=== PATIENT | male | born 1950 | race Caucasian/White ===

== ENCOUNTER 2019-02-14 21:00 | Inpatient (IN) | payer MEDICARE, OTHER ==
[2019-02-14 23:15] VITALS: BP 120/79
[2019-02-15] MEDS: Fish Oil 1,000 MG SGL PO SCH (08:32)
[2019-02-15] MEDS ORDERED: ICOSAPENT ETHYL 2 GM PO SCH (09:00)
[2019-02-15] MEDS: OLANZapine 5 mg Oral Disintegrating Tab PO SCH (09:51)
[2019-02-15] MEDS: Guaifenesin DM 10 ML UDC PO PRN ×2 (12:28→20:50)
--- NOTE | 2019-02-15 15:59 | Psychiatric Evaluation ---
DATE OF SERVICE: 02/14/2019 PSYCHIATRIC INITIAL EVALUATION AND MENTAL STATUS EXAMINATION AGE: 68. SEX: Male. PHYSICIAN: Dr. Cummings. CHIEF COMPLAINT: Irritability and aggressive behavior. HISTORY OF PRESENT ILLNESS: The patient is a 68-year-old male who was transferred from [facility] because the patient has been verbally aggressive and calling staff names and profanity and cursing at other patients. The patient also has been making racial comments to other patients. The patient also has been aggressive with other residents and also has been in angry mood. He also has been extremely agitated and it is also questionable if he is compliant with taking his medications and giving staff a difficult time to take his medications. PAST PSYCHIATRIC HISTORY: Multiple psychiatric hospitalizations for treatment of schizophrenia. Last hospitalization was in May of this year in the same place. PAST MEDICAL HISTORY: The patient has hypertension, gastroesophageal reflux disease, neuropathy, hyperlipidemia and also history of seizure disorder. The patient also has a history of cerebral infarct. SOCIAL HISTORY: The patient lives in [facility]. No known alcohol or drug use. ALLERGIES: No known allergies. MENTAL STATUS EXAMINATION: The patient appears slightly older than his stated age. Disheveled. Angry mood. Thought process is circumstantial, but no flight of ideas. The patient denies any auditory or visual hallucinations, but the patient seems to be paranoid and is actively responding. The patient denies any suicidal or homicidal ideations. The patient is alert and oriented to the situation, place and person. Intact immediate, recent and remote memories. Poor insight and poor judgment. ASSESSMENT: PRIMARY DIAGNOSIS: Chronic paranoid schizophrenia with acute exacerbation. MEDICAL DIAGNOSES: Hypertension. Seizure disorder. Gastroesophageal reflux disease. Cerebral infarct. Neuropathy. TREATMENT PLAN: We will monitor the patient's behavior and condition closely. We will increase Zyprexa to 5 mg in the morning and 15 mg at bedtime. Also, we will work on behavioral modification and his poor impulse control. ESTIMATED LENGTH OF STAY: 5-7 days. PATIENT'S STRENGTHS AND WEAKNESSES: The patient's strength is not clear at this time except he seems to be in relatively fair health. Weaknesses, his poor impulse control. AFTER DISCHARGE PLAN: Outpatient treatment and followup, will continue as an outpatient. CRITERIA FOR DISCHARGE: The patient will not be as agitated and will stabilize psychotropic medications and will establish outpatient treatment plans. JOB# [id number]
--- NOTE | 2019-02-15 19:55 | History & Physical ---
ADMIT DATE: 02/14/2019 HISTORY OF PRESENT ILLNESS: The patient is a 68-year-old male, long history of hypertension, seizure disorder, gastroesophageal reflux, psychosis admitted to Geropsych Department at [facility] under Dr. Cummings's service. The patient denies any chest pain, shortness of breath. He has some cough, congestion for a few days. PAST MEDICAL HISTORY: Significant for hypertension, seizure disorder, psychosis, gastroesophageal reflux, degenerative joint disease. PAST SURGICAL HISTORY: No recent surgery. ALLERGIES: He is allergic to ARIPIPRAZOLE, CHLORPROMAZINE, FLUPHENAZINE and HALOPERIDOL. SOCIAL HISTORY: Chronic smoker. No alcohol or drug. FAMILY HISTORY: Noncontributory. MEDICATIONS: Follow admission reconciliation. REVIEW OF SYSTEMS: RENAL SYSTEM: No history of chronic renal disorder. CARDIOVASCULAR SYSTEM: No coronary artery disease. ENDOCRINE SYSTEM: No diabetes or thyroid problem. GASTROINTESTINAL SYSTEM: No upper or lower GI bleeding. NEUROLOGICAL SYSTEM: He has history of seizure disorder. SKELETOMUSCULAR SYSTEM: He has degenerative joint disease. RESPIRATORY SYSTEM: No asthma. GENITOURINARY: No dysuria or hematuria. PHYSICAL EXAMINATION: GENERAL: He is awake, alert, oriented. VITAL SIGNS: Temperature 97.1, heart rate 102, blood pressure 125/92. HEENT: Normocephalic. Pupils reacting equal to light and accommodation. Sclerae clear. NECK: Supple. Negative for lymphadenopathy, JVD or bruit. CHEST: Air bilaterally normal. No rhonchi or wheezing. HEART: S1, S2 normal. No gallop rhythm. ABDOMEN: Soft, bowel sounds positive. EXTREMITIES: No edema. BACK: Vertebral. GENITALIA AND RECTAL: Done by primary physician. Genitalia, no complaint, done by primary physician. NEUROLOGIC: He is awake, alert, oriented. Cranial nerve 1: The patient is able to smell different odor. Cranial nerve 2: The patient is able to read printed page. Cranial nerve 3: The patient is able to move eyeball upward and outward. Cranial nerve 4: The patient is able to move eyeball inward and downward. Cranial nerve 5: The patient able to clench teeth, has normal sensation to forehead. Cranial nerve 6: The patient is able to move eyeball lateral on both sides. Cranial nerve 7: The patient is able to move eyebrow upwards on both sides. Cranial nerve 8: The patient able to hear finger rubs on both sides. Cranial nerve 9: The patient has a normal gag reflex. Cranial nerve 10: The patient able to move soft palate upward ____. Cranial nerve 11: The patient able to shrug shoulder on both sides. Cranial nerve 12: The patient able to stick tongue straight. Motor system examination within normal limits. Deep tendon reflexes within normal limits. Coordination of muscle within normal limits. Sensory system: The patient has a normal pain, touch, position of the upper extremities. Gait is stable. ASSESSMENT: 1. Hypertension. 2. Seizure disorder. 3. Degenerative joint disease. 4. Gastroesophageal reflux. 5. Chronic smoking. 6. Psychosis. PLAN: The patient admitted to the hospital under Dr. Cummings's service. Medical problems addressed during hospitalization is psychosis. Medical problems addressed at discharge are hypertension, seizure disorder, chronic back pain, degenerative joint disease, gastroesophageal reflux. The patient is medically stable for activity. Thank you Dr. Cummings for asking me to see your patient. The patient is cleared for activity. The patient is a full code. JOB# [id number]
--- NOTE | 2019-02-16 06:53 | Progress Notes ---
DATE: 02/16/2019 SUBJECTIVE: Chart was reviewed and the patient interviewed. Also discussed the patient's condition with the staff and reviewed records and labs. The patient continued to be severely irritable and easily agitated. The patient also is still preoccupied with his medication seeking and asking for more medications. The patient also did not sleep much last night. The patient is taking Zyprexa and it is not helping the patient with his sleep. Otherwise, the patient is compliant with taking Zyprexa that was increased yesterday to 5 mg in the morning and 50 mg at bedtime and the patient has no side effects of medications. ASSESSMENT: The patient is still agitated and irritable. TREATMENT PLAN: Continue to monitor his behavior and his condition. Also, we will add trazodone in a dose of 50 mg at bedtime. Also, continue to work on his poor impulse control and his agitation. JOB# [id number]
[2019-02-16] MEDS: Fish Oil 1,000 MG SGL PO SCH (08:13)
[2019-02-16] MEDS: OLANZapine 5 mg Oral Disintegrating Tab PO SCH (08:13)
[2019-02-16] MEDS: Guaifenesin DM 10 ML UDC PO PRN ×3 (08:46→21:38)
--- NOTE | 2019-02-16 15:14 | Psychiatric Evaluation ---
DATE OF SERVICE: 02/14/2019 PSYCHIATRIC INITIAL EVALUATION AND MENTAL STATUS EXAM DICTATION ENDS HERE JOB# [id number]
--- NOTE | 2019-02-16 21:32 | Internal Medicine Prog Note ---
Internal Medicine Subjective - Subjective Service Date: 02/16/19 Patient seen and examined:: without staff (HE FEELS WELL) Patient is:: awake, verbal, ambulating, talking Per staff patient has:: no adverse event Internal Medicine Objective - Physical Exam Vitals and I&O: Vital Signs Temp 97.5 F 02/16/19 14:00 Pulse 93 02/16/19 16:34 Resp 20 02/16/19 14:00 BP 130/93 02/16/19 16:34 Pulse Ox 95 02/16/19 14:00 Intake & Output 02/16/19 02/16/19 02/17/19 06:59 18:59 06:59 Intake Total 240 1200 Balance 240 1200 Intake: Oral 240 1200 Other: # Voids 3 # Bowel Movements 1 1 Stool Characteristics Soft Soft Formed Formed Active Medications: Current Medications Acetaminophen (Tylenol) 650 mg PO Q4HR PRN PRN Reason: Mild Pain 1-3 Stop: 04/16/19 00:24 Acetaminophen (Tylenol) 650 mg PO Q4H PRN PRN Reason: TEMP ABOVE 100 Stop: 04/16/19 10:08 Carvedilol (Coreg) 3.125 mg PO BID [facility] Stop: 04/16/19 08:59 Last Admin: 02/16/19 16:33 Dose: 3.125 mg Docusate Sodium (Colace) 250 mg PO BID [facility] Stop: 04/16/19 08:59 Last Admin: 02/16/19 16:34 Dose: 250 mg Famotidine (Pepcid) 20 mg PO DAILY [facility] Stop: 04/16/19 08:59 Last Admin: 02/16/19 08:14 Dose: 20 mg Fish Oil ([place] 3) 1,000 mg PO DAILY [facility] Stop: 04/16/19 08:59 Last Admin: 02/16/19 08:13 Dose: 1,000 mg Guaifenesin/Dextromethorphan (Robitussin Dm) 10 ml PO Q6HR PRN PRN Reason: Cough Stop: 04/16/19 10:58 Last Admin: 02/16/19 14:54 Dose: 10 ml Ibuprofen (Motrin) 400 mg PO Q8HR PRN PRN Reason: moderate pain (4-6) Stop: 04/16/19 00:24 Last Admin: 02/16/19 02:39 Dose: 400 mg Levetiracetam (Keppra) 500 mg PO BID [facility] Stop: 04/16/19 08:59 Last Admin: 02/16/19 16:34 Dose: 500 mg Lisinopril (Zestril) 20 mg PO BID [facility] Stop: 04/16/19 08:59 Last Admin: 02/16/19 16:34 Dose: 20 mg Lorazepam (Ativan) 0.5 mg PO Q4HR PRN; Protocol PRN Reason: Anxiety Stop: 04/16/19 00:24 Last Admin: 02/15/19 21:57 Dose: 0.5 mg Miscellaneous (Icosapent Ethyl [Vascepa]) 2 gm PO BID [facility] Stop: 04/16/19 08:59 Olanzapine (Zyprexa) 15 mg PO HS [facility]; Protocol Stop: 04/16/19 20:59 Last Admin: 02/15/19 20:32 Dose: 15 mg Olanzapine (Zyprexa Zydis) 5 mg PO DAILY [facility]; Protocol Stop: 04/16/19 08:59 Last Admin: 02/16/19 08:13 Dose: 5 mg Trazodone HCl (Desyrel) 50 mg PO HS [facility]; Protocol Stop: 04/17/19 20:59 Zolpidem Tartrate (Ambien) 5 mg PO HS PRN PRN Reason: Insomnia Stop: 04/16/19 00:24 Last Admin: 02/15/19 22:22 Dose: 5 mg General: alert HEENT: NC/AT, PERRLA, EOMI, anicteric sclerae, throat clear Neck: Supple, No JVD, No thyromegaly, +2 carotid pulse wo bruit, No LAD Cardiovascular: RRR, Normal S1, Normal S2, without murmur Abdomen: soft, non-tender, non-distended Extremities: clear Neurological: no change Internal Medicine Assmt/Plan - Assessment Assessment: 1.HTN. 2.SEIZURE DISORDER. 3.HYPERLIPIDEMIA. 4.PSYCHOSIS - Plan Plan: CONTINUE ON CURRENT MEDICATION AND DIET
[2019-02-17] MEDS: OLANZapine 5 mg Oral Disintegrating Tab PO SCH (09:03)
[2019-02-17] MEDS: Fish Oil 1,000 MG SGL PO SCH (09:03)
[2019-02-17] MEDS: Guaifenesin DM 10 ML UDC PO PRN ×2 (10:30→20:45)
--- NOTE | 2019-02-17 20:57 | Internal Medicine Prog Note ---
Internal Medicine Subjective - Subjective Service Date: 02/17/19 Patient seen and examined:: without staff (HE FEELS WELL) Patient is:: awake, verbal, ambulating, talking Per staff patient has:: no adverse event Internal Medicine Objective - Physical Exam Vitals and I&O: Vital Signs Temp 98 F 02/17/19 20:00 Pulse 92 02/17/19 20:00 Resp 20 02/17/19 20:00 BP 121/92 02/17/19 20:00 Pulse Ox 97 02/17/19 20:00 Intake & Output 02/17/19 02/17/19 02/18/19 06:59 18:59 06:59 Intake Total 240 240 Balance 240 240 Intake: Oral 240 240 Other: # Voids 2 1 # Bowel Movements 0 Stool Characteristics Soft Formed Active Medications: Current Medications Acetaminophen (Tylenol) 650 mg PO Q4HR PRN PRN Reason: Mild Pain 1-3 Stop: 04/16/19 00:24 Acetaminophen (Tylenol) 650 mg PO Q4H PRN PRN Reason: TEMP ABOVE 100 Stop: 04/16/19 10:08 Carvedilol (Coreg) 3.125 mg PO BID [facility] Stop: 04/16/19 08:59 Last Admin: 02/17/19 16:49 Dose: 3.125 mg Docusate Sodium (Colace) 250 mg PO BID [facility] Stop: 04/16/19 08:59 Last Admin: 02/17/19 16:48 Dose: 250 mg Famotidine (Pepcid) 20 mg PO DAILY [facility] Stop: 04/16/19 08:59 Last Admin: 02/17/19 09:03 Dose: 20 mg Fish Oil ([place] 3) 1,000 mg PO DAILY [facility] Stop: 04/16/19 08:59 Last Admin: 02/17/19 09:03 Dose: 1,000 mg Guaifenesin/Dextromethorphan (Robitussin Dm) 10 ml PO Q6HR PRN PRN Reason: Cough Stop: 04/16/19 10:58 Last Admin: 02/17/19 20:45 Dose: 10 ml Ibuprofen (Motrin) 400 mg PO Q8HR PRN PRN Reason: moderate pain (4-6) Stop: 04/16/19 00:24 Last Admin: 02/17/19 20:45 Dose: 400 mg Levetiracetam (Keppra) 500 mg PO BID [facility] Stop: 04/16/19 08:59 Last Admin: 02/17/19 16:48 Dose: 500 mg Lisinopril (Zestril) 20 mg PO BID [facility] Stop: 04/16/19 08:59 Last Admin: 02/17/19 16:49 Dose: 20 mg Lorazepam (Ativan) 0.5 mg PO Q4HR PRN; Protocol PRN Reason: Anxiety Stop: 04/16/19 00:24 Last Admin: 02/15/19 21:57 Dose: 0.5 mg Miscellaneous (Icosapent Ethyl [Vascepa]) 2 gm PO BID [facility] Stop: 04/16/19 08:59 Olanzapine (Zyprexa) 15 mg PO HS [facility]; Protocol Stop: 04/16/19 20:59 Last Admin: 02/17/19 20:31 Dose: 15 mg Olanzapine (Zyprexa Zydis) 5 mg PO DAILY [facility]; Protocol Stop: 04/16/19 08:59 Last Admin: 02/17/19 09:03 Dose: 5 mg Trazodone HCl (Desyrel) 50 mg PO HS [facility]; Protocol Stop: 04/17/19 20:59 Last Admin: 02/17/19 20:30 Dose: 50 mg Zolpidem Tartrate (Ambien) 5 mg PO HS PRN PRN Reason: Insomnia Stop: 04/16/19 00:24 Last Admin: 02/16/19 21:38 Dose: 5 mg General: alert HEENT: NC/AT, PERRLA, EOMI, anicteric sclerae, throat clear Neck: Supple, No JVD, No thyromegaly, +2 carotid pulse wo bruit, No LAD Cardiovascular: RRR, Normal S1, Normal S2, without murmur Abdomen: soft, non-tender, non-distended Extremities: clear Neurological: no change Internal Medicine Assmt/Plan - Assessment Assessment: 1.HTN. 2.SEIZURE DISORDER. 3.HYPERLIPIDEMIA. 4.PSYCHOSIS - Plan Plan: CONTINUE ON CURRENT MEDICATION AND DIET
--- NOTE | 2019-02-18 01:58 | Progress Notes ---
DATE: 02/17/[address] Cummings. Case was discussed with staff of the patient, reviewed records and labs and medication. The patient is a 68-year-old male who was admitted on 02/14/2019 because of aggressive behavior, irritability. The patient came from [facility] because he has been verbally aggressive and calling staff names and profanity and cursing at other patient, has been making racial comments to other patients. The patient also has been aggressive with other residents and has been in angry mood, also being extremely agitated and also questionable if he is compliant with taking his medication and giving staff difficult time to take his medication. He is with multiple prior psychiatric hospitalizations. The patient continues to be easily agitated, continues to be internally preoccupied. Continues to have difficulty with sleep. He is compliant with the medication with no side effects, no sedation, no nausea, no extrapyramidal symptoms. He is on Zyprexa that was increased to 5 mg daily and 15 mg at bedtime with no side effects, no sedation, no nausea and no extrapyramidal symptoms. We will continue to work with the patient in group therapy, milieu therapy and adjust the medication as needed. JOB# [id number]
[2019-02-18] MEDS: Guaifenesin DM 10 ML UDC PO PRN ×3 (08:34→16:09)
[2019-02-18] MEDS: Fish Oil 1,000 MG SGL PO SCH (08:36)
[2019-02-18] MEDS: OLANZapine 5 mg Oral Disintegrating Tab PO SCH (08:37)
--- NOTE | 2019-02-18 20:52 | General Progress Note ---
Subjective - Review of Systems Service Date: 02/18/19 Subjective: resting comfortably no distress Objective - Physical Exam Vitals and I&O: Vital Signs Temp 98.1 F 02/18/19 20:19 Pulse 85 02/18/19 20:19 Resp 20 02/18/19 20:19 BP 128/92 02/18/19 20:19 Pulse Ox 93 02/18/19 20:19 Intake & Output 02/18/19 02/18/19 02/19/19 06:59 18:59 06:59 Intake Total 420 240 Balance 420 240 Intake: Oral 420 240 Other: # Voids 1 2 # Bowel Movements 0 Stool Characteristics Formed Active Medications: Current Medications Acetaminophen (Tylenol) 650 mg PO Q4HR PRN PRN Reason: Mild Pain 1-3 Stop: 04/16/19 00:24 Acetaminophen (Tylenol) 650 mg PO Q4H PRN PRN Reason: TEMP ABOVE 100 Stop: 04/16/19 10:08 Carvedilol (Coreg) 3.125 mg PO BID [facility] Stop: 04/16/19 08:59 Last Admin: 02/18/19 16:03 Dose: 3.125 mg Docusate Sodium (Colace) 250 mg PO BID [facility] Stop: 04/16/19 08:59 Last Admin: 02/18/19 16:02 Dose: 250 mg Famotidine (Pepcid) 20 mg PO DAILY [facility] Stop: 04/16/19 08:59 Last Admin: 02/18/19 08:36 Dose: 20 mg Fish Oil ([place] 3) 1,000 mg PO DAILY [facility] Stop: 04/16/19 08:59 Last Admin: 02/18/19 08:36 Dose: 1,000 mg Guaifenesin/Dextromethorphan (Robitussin Dm) 10 ml PO Q6HR PRN PRN Reason: Cough Stop: 04/16/19 10:58 Last Admin: 02/18/19 16:09 Dose: 10 ml Ibuprofen (Motrin) 400 mg PO Q8HR PRN PRN Reason: moderate pain (4-6) Stop: 04/16/19 00:24 Last Admin: 02/18/19 20:35 Dose: 400 mg Levetiracetam (Keppra) 500 mg PO BID [facility] Stop: 04/16/19 08:59 Last Admin: 02/18/19 16:02 Dose: 500 mg Lisinopril (Zestril) 20 mg PO BID [facility] Stop: 04/16/19 08:59 Last Admin: 02/18/19 16:02 Dose: 20 mg Lorazepam (Ativan) 0.5 mg PO Q4HR PRN; Protocol PRN Reason: Anxiety Stop: 04/16/19 00:24 Last Admin: 02/18/19 04:04 Dose: 0.5 mg Miscellaneous (Icosapent Ethyl [Vascepa]) 2 gm PO BID [facility] Stop: 04/16/19 08:59 Olanzapine (Zyprexa) 15 mg PO HS [facility]; Protocol Stop: 04/16/19 20:59 Last Admin: 02/17/19 20:31 Dose: 15 mg Olanzapine (Zyprexa Zydis) 5 mg PO DAILY [facility]; Protocol Stop: 04/16/19 08:59 Last Admin: 02/18/19 08:37 Dose: 5 mg Trazodone HCl (Desyrel) 50 mg PO HS [facility]; Protocol Stop: 04/17/19 20:59 Last Admin: 02/18/19 20:35 Dose: 50 mg Zolpidem Tartrate (Ambien) 5 mg PO HS PRN PRN Reason: Insomnia Stop: 04/16/19 00:24 Last Admin: 02/16/19 21:38 Dose: 5 mg General: No acute distress HEENT: PERRLA, EOMI Neck: Supple, JVD, Thyromegaly Cardiovascular: Regular rate, Normal S1, Normal S2 Lungs: Clear to auscultation Abdomen: Bowel sounds, Soft Assessment/Plan - Assessment Assessment: 1.HTN. 2.SEIZURE DISORDER. 3.HYPERLIPIDEMIA. 4.PSYCHOSIS - Plan Plan: continue current treatment
--- NOTE | 2019-02-18 23:13 | Progress Notes ---
DATE: 02/18/[address] Cummings. The patient was seen and evaluated. The patient's chart reviewed. IDENTIFYING DATA: This is a 68-year-old male with history of schizophrenia, brought in here for aggressive behavior towards staff from his assisted. Today on [id number] evaluation, the patient admits to schizophrenia and hearing voices and paranoid. MENTAL STATUS EXAMINATION: Paranoid, auditory hallucinations, aggressive behavior. ASSESSMENT AND PLAN: Schizophrenia, his Zyprexa was recently increased. Reconciliation reviewed, includes Coreg, Col[facility], Pepcid, omega, Motrin, Keppra, Zestril, Ativan, Zydis 5 in the morning, 15 at nighttime with trazodone as needed. JOB# [id number]
[2019-02-19] MEDS: Fish Oil 1,000 MG SGL PO SCH (08:19)
[2019-02-19] MEDS: OLANZapine 5 mg Oral Disintegrating Tab PO SCH (08:20)
[2019-02-19] MEDS: Guaifenesin DM 10 ML UDC PO PRN ×2 (09:56→17:15)
--- NOTE | 2019-02-19 13:59 | General Progress Note ---
Subjective - Review of Systems Service Date: 02/19/19 Subjective: resting comfortably no distress Objective - Physical Exam Vitals and I&O: Vital Signs Temp 97.6 F 02/19/19 05:58 Pulse 97 02/19/19 08:20 Resp 20 02/19/19 05:58 BP 125/87 02/19/19 08:20 Pulse Ox 94 02/19/19 05:58 Intake & Output 02/18/19 02/19/19 02/19/19 18:59 06:59 18:59 Intake Total 240 Balance 240 Intake: Oral 240 Other: # Voids 2 Stool Characteristics Formed Active Medications: Current Medications Acetaminophen (Tylenol) 650 mg PO Q4HR PRN PRN Reason: Mild Pain 1-3 Stop: 04/16/19 00:24 Acetaminophen (Tylenol) 650 mg PO Q4H PRN PRN Reason: TEMP ABOVE 100 Stop: 04/16/19 10:08 Carvedilol (Coreg) 3.125 mg PO BID [facility] Stop: 04/16/19 08:59 Last Admin: 02/19/19 08:18 Dose: 3.125 mg Docusate Sodium (Colace) 250 mg PO BID [facility] Stop: 04/16/19 08:59 Last Admin: 02/19/19 08:19 Dose: 250 mg Famotidine (Pepcid) 20 mg PO DAILY [facility] Stop: 04/16/19 08:59 Last Admin: 02/19/19 08:19 Dose: 20 mg Fish Oil ([place] 3) 1,000 mg PO DAILY [facility] Stop: 04/16/19 08:59 Last Admin: 02/19/19 08:19 Dose: 1,000 mg Guaifenesin/Dextromethorphan (Robitussin Dm) 10 ml PO Q6HR PRN PRN Reason: Cough Stop: 04/16/19 10:58 Last Admin: 02/19/19 09:56 Dose: 10 ml Ibuprofen (Motrin) 400 mg PO Q8HR PRN PRN Reason: moderate pain (4-6) Stop: 04/16/19 00:24 Last Admin: 02/19/19 08:31 Dose: 400 mg Levetiracetam (Keppra) 500 mg PO BID [facility] Stop: 04/16/19 08:59 Last Admin: 02/19/19 08:24 Dose: 500 mg Lisinopril (Zestril) 20 mg PO BID [facility] Stop: 04/16/19 08:59 Last Admin: 02/19/19 08:20 Dose: 20 mg Lorazepam (Ativan) 0.5 mg PO Q4HR PRN; Protocol PRN Reason: Anxiety Stop: 04/16/19 00:24 Last Admin: 02/19/19 01:25 Dose: 0.5 mg Miscellaneous (Icosapent Ethyl [Vascepa]) 2 gm PO BID [facility] Stop: 04/16/19 08:59 Olanzapine (Zyprexa) 15 mg PO HS [facility]; Protocol Stop: 04/16/19 20:59 Last Admin: 02/18/19 20:00 Dose: 15 mg Olanzapine (Zyprexa Zydis) 5 mg PO DAILY [facility]; Protocol Stop: 04/16/19 08:59 Last Admin: 02/19/19 08:20 Dose: 5 mg Trazodone HCl (Desyrel) 50 mg PO HS [facility]; Protocol Stop: 04/17/19 20:59 Last Admin: 02/18/19 20:35 Dose: 50 mg Zolpidem Tartrate (Ambien) 5 mg PO HS PRN PRN Reason: Insomnia Stop: 04/16/19 00:24 Last Admin: 02/16/19 21:38 Dose: 5 mg General: No acute distress HEENT: PERRLA, EOMI Neck: Supple, JVD, Thyromegaly Cardiovascular: Regular rate, Normal S1, Normal S2 Lungs: Clear to auscultation Abdomen: Bowel sounds, Soft Assessment/Plan - Assessment Assessment: 1.HTN. 2.SEIZURE DISORDER. 3.HYPERLIPIDEMIA. 4.PSYCHOSIS - Plan Plan: continue current treatment
--- NOTE | 2019-02-19 20:21 | Progress Notes ---
DATE: 02/19/2019 Today on [id number] evaluation, the patient reports voices are getting better. MENTAL STATUS EXAMINATION: Paranoid voices. ASSESSMENT AND PLAN: Schizophrenia with recent addition of Zyprexa, has been tolerated, to continue targeting the patient's residual psychotic state. JOB# [id number]
[2019-02-20] MEDS: OLANZapine 5 mg Oral Disintegrating Tab PO SCH (08:21)
[2019-02-20] MEDS: Fish Oil 1,000 MG SGL PO SCH (08:21)
[2019-02-20] MEDS: Guaifenesin DM 10 ML UDC PO PRN ×2 (09:39→19:44)
--- NOTE | 2019-02-20 18:10 | Internal Medicine Prog Note ---
Internal Medicine Subjective - Subjective Service Date: 02/20/19 Patient seen and examined:: without staff (HE HAS COUGH AND BACK PAIN) Patient is:: awake, verbal, ambulating, talking Per staff patient has:: no adverse event Internal Medicine Objective - Physical Exam Vitals and I&O: Vital Signs Temp 98.2 F 02/20/19 14:40 Pulse 85 02/20/19 16:53 Resp 20 02/20/19 14:40 BP 128/92 02/20/19 16:53 Pulse Ox 99 02/20/19 14:40 Intake & Output 02/19/19 02/20/19 02/20/19 18:59 06:59 18:59 Intake Total 1320 420 Balance 1320 420 Intake: Oral 1080 420 Other 240 Other: # Voids 3 2 # Bowel Movements 1 0 Active Medications: Current Medications Acetaminophen (Tylenol) 650 mg PO Q4HR PRN PRN Reason: Mild Pain 1-3 Stop: 04/16/19 00:24 Acetaminophen (Tylenol) 650 mg PO Q4H PRN PRN Reason: TEMP ABOVE 100 Stop: 04/16/19 10:08 Carvedilol (Coreg) 3.125 mg PO BID [facility] Stop: 04/16/19 08:59 Last Admin: 02/20/19 16:53 Dose: 3.125 mg Docusate Sodium (Colace) 250 mg PO BID [facility] Stop: 04/16/19 08:59 Last Admin: 02/20/19 16:52 Dose: Not Given Famotidine (Pepcid) 20 mg PO DAILY [facility] Stop: 04/16/19 08:59 Last Admin: 02/20/19 08:21 Dose: 20 mg Fish Oil ([place] 3) 1,000 mg PO DAILY [facility] Stop: 04/16/19 08:59 Last Admin: 02/20/19 08:21 Dose: 1,000 mg Guaifenesin/Dextromethorphan (Robitussin Dm) 10 ml PO Q6HR PRN PRN Reason: Cough Stop: 04/16/19 10:58 Last Admin: 02/20/19 09:39 Dose: 10 ml Ibuprofen (Motrin) 400 mg PO Q8HR PRN PRN Reason: moderate pain (4-6) Stop: 04/16/19 00:24 Last Admin: 02/20/19 08:21 Dose: 400 mg Levetiracetam (Keppra) 500 mg PO BID [facility] Stop: 04/16/19 08:59 Last Admin: 02/20/19 16:52 Dose: 500 mg Lisinopril (Zestril) 20 mg PO BID [facility] Stop: 04/16/19 08:59 Last Admin: 02/20/19 16:52 Dose: 20 mg Lorazepam (Ativan) 0.5 mg PO Q4HR PRN; Protocol PRN Reason: Anxiety Stop: 04/16/19 00:24 Last Admin: 02/19/19 01:25 Dose: 0.5 mg Miscellaneous (Icosapent Ethyl [Vascepa]) 2 gm PO BID [facility] Stop: 04/16/19 08:59 Olanzapine (Zyprexa) 15 mg PO HS [facility]; Protocol Stop: 04/16/19 20:59 Last Admin: 02/19/19 20:59 Dose: 15 mg Olanzapine (Zyprexa Zydis) 5 mg PO DAILY [facility]; Protocol Stop: 04/16/19 08:59 Last Admin: 02/20/19 08:21 Dose: 5 mg Trazodone HCl (Desyrel) 50 mg PO HS [facility]; Protocol Stop: 04/17/19 20:59 Last Admin: 02/19/19 20:59 Dose: 50 mg Zolpidem Tartrate (Ambien) 5 mg PO HS PRN PRN Reason: Insomnia Stop: 04/16/19 00:24 Last Admin: 02/16/19 21:38 Dose: 5 mg General: alert HEENT: NC/AT, PERRLA, EOMI, anicteric sclerae, throat clear Neck: Supple, No JVD, No thyromegaly, +2 carotid pulse wo bruit, No LAD Cardiovascular: RRR, Normal S1, Normal S2, without murmur Abdomen: soft, non-tender, non-distended Extremities: clear Neurological: no change Internal Medicine Assmt/Plan - Assessment Assessment: 1.HTN. 2.SEIZURE DISORDER. 3.HYPERLIPIDEMIA. 4.PSYCHOSIS 5.BACK PAIN 6.CHRONIC SMOKING - Plan Plan: CONTINUE ON CURRENT MEDICATION AND DIET.ROBITUSSIN 10 CC PO TID Nutritional Asmnt/Malnutr-PDOC - Dietary Evaluation Malnutrition Findings (Please click <Entered> for more info): Nutritional Asmnt/Malnutrition Start: 02/20/19 14: 34 Text: Status: Complete Freq: Protocol: Document 02/20/19 14:34 AB (Rec: 02/20/19 14:37 AB [email or web address]) Nutritional Asmnt/Malnutrition Patient General Information Nutritional Screening Low Risk Diagnosis Psychosis Pertinent Medical Hx/Surgical Hx HTN, Seizure Disorder, GERD, Psychosis, DJD, Chronic smoker Subjective Information Pt is a 68-year-old male admitted on 02/14 d/t psychosis . Pt is eating an estimated 100% of meals since admit date Per Meal/Nutrition Activity Record. Dietary is currently providing an estimated 2300 kcals and 115 gm Pro to meet 100+% kcal and 100+% Pro needs . Anthropometrics HT: 57 WT: 180 LB (81.82 kg) ABW: 156 LB (70.91 kg) BMI: 28.19 (Overweight) GI/ Skin Integrity GI: WNL, Soft, Flat, Non- tender BM: 02/16 x1 I/O: 1740/ not noted Skin: WNL, Intact Nino: 22 Diet Order: Cardiac, chopped, TOAN Estimated Energy Needs: ( Geriatric, ABW) 8011-2841 kcals (25-30 kcals/ kg) 70-85g Pro (1.0-1.2 g/kg) 0051-3685 ml (25-30 ml/kg) Current Diet Order/ Nutrition Support Cardiac, chopped, TOAN Pertinent Medications Coreg, Colace, Pepcid, [place] 3 Pertinent Labs 02/14: Glucose 154, GFR 82, HDL 39 Nutritional Hx/Data Height 1.7 m Height (Calculated Centimeters) 170.2 Current Weight (lbs) 81.647 kg Weight (Calculated Kilograms) 81.6 Weight (Calculated Grams) 17892.6 [place] Body Weight 148 LB (67.27 kg) % [place] Body Weight 122 Body Mass Index (BMI) 28.1 Weight Status Overweight GI Symptoms GI Symptoms None Last BM 02/16 x1 Skin Integrity/Comment: Skin: WNL, Intact Nino: 22 Current %PO Good (75-100%) Estimated Nutritional Goals BEE in Kcals: Adj wt of IBW Calories/Kcals/Kg 25-30 Kcals Calculated 2579-8696 Protein: Adj wt of IBW Protein g/k.0-1.2 Protein Calculated 70-85 Fluid: ml 5430-8383 ml (25-30 ml/kg) Nutritional Problem No current Nutrition Prob Problem No nutrition diagnosis at this time. Etiology N/A Signs/Symptoms: N/A Malnutrition Related to Morbid Obesity Malnutrition related to morbid obesity No Intervention/Recommendation Comments Continue Cardiac, chopped, TOAN diet as tolerated. Expected Outcomes/Goals Expected Outcomes/Goals 1. PO intake to continue to meet> 75% of estimated nutritional needs. 2. Monitor PO intake, wt, nutrition related labs, and skin integrity. 3. F/U as low risk in 7-10 days, 02/27-03/02
--- NOTE | 2019-02-21 00:04 | Progress Notes ---
DATE: 02/20/2019 SUBJECTIVE: Case was discussed with staff of the patient, reviewed records. The patient continues to have poor insight, unpredictable, impulsive, needing redirection. Continues to be paranoid, continues to report the voices are getting better. He is sleeping better, eating better, isolating himself. No side effects with the medication, no sedation, no nausea, no extrapyramidal symptoms. We will continue outpatient group therapy, milieu therapy, and adjust medications as needed. JOB# [id number]
[2019-02-21] MEDS: OLANZapine 5 mg Oral Disintegrating Tab PO SCH (08:30)
[2019-02-21] MEDS: Fish Oil 1,000 MG SGL PO SCH (08:30)
--- NOTE | 2019-02-21 21:11 | Internal Medicine Prog Note ---
Internal Medicine Subjective - Subjective Service Date: 02/21/19 Patient seen and examined:: without staff (HE STILL HAS BACK PAIN) Patient is:: awake, verbal, ambulating, talking Per staff patient has:: no adverse event Internal Medicine Objective - Physical Exam Vitals and I&O: Vital Signs Temp 98.4 F 02/21/19 20:38 Pulse 96 02/21/19 20:38 Resp 20 02/21/19 20:38 BP 133/100 02/21/19 20:38 Pulse Ox 93 02/21/19 20:38 Intake & Output 02/21/19 02/21/19 02/22/19 06:59 18:59 06:59 Intake Total 240 120 Balance 240 120 Intake: Oral 240 120 Other: # Voids 2 3 2 # Bowel Movements 1 0 Active Medications: Current Medications Acetaminophen (Tylenol) 650 mg PO Q4HR PRN PRN Reason: Mild Pain 1-3 Stop: 04/16/19 00:24 Acetaminophen (Tylenol) 650 mg PO Q4H PRN PRN Reason: TEMP ABOVE 100 Stop: 04/16/19 10:08 Carvedilol (Coreg) 3.125 mg PO BID [facility] Stop: 04/16/19 08:59 Last Admin: 02/21/19 16:22 Dose: 3.125 mg Docusate Sodium (Colace) 250 mg PO BID [facility] Stop: 04/16/19 08:59 Last Admin: 02/21/19 16:22 Dose: Not Given Famotidine (Pepcid) 20 mg PO DAILY [facility] Stop: 04/16/19 08:59 Last Admin: 02/21/19 08:30 Dose: 20 mg Fish Oil ([place] 3) 1,000 mg PO DAILY [facility] Stop: 04/16/19 08:59 Last Admin: 02/21/19 08:30 Dose: 1,000 mg Guaifenesin (Robitussin) 200 mg PO Q4HR PRN PRN Reason: Cough or Congestion Stop: 04/21/19 18:09 Guaifenesin/Dextromethorphan (Robitussin Dm) 10 ml PO Q6HR PRN PRN Reason: Cough Stop: 04/16/19 10:58 Last Admin: 02/20/19 19:44 Dose: 10 ml Ibuprofen (Motrin) 400 mg PO Q8HR PRN PRN Reason: moderate pain (4-6) Stop: 04/16/19 00:24 Last Admin: 02/20/19 08:21 Dose: 400 mg Levetiracetam (Keppra) 500 mg PO BID [facility] Stop: 04/16/19 08:59 Last Admin: 02/21/19 16:23 Dose: 500 mg Lisinopril (Zestril) 20 mg PO BID [facility] Stop: 04/16/19 08:59 Last Admin: 02/21/19 16:23 Dose: 20 mg Lorazepam (Ativan) 0.5 mg PO Q4HR PRN; Protocol PRN Reason: Anxiety Stop: 04/16/19 00:24 Last Admin: 02/20/19 19:44 Dose: 0.5 mg Miscellaneous (Icosapent Ethyl [Vascepa]) 2 gm PO BID [facility] Stop: 04/16/19 08:59 Olanzapine (Zyprexa) 15 mg PO HS [facility]; Protocol Stop: 04/16/19 20:59 Last Admin: 02/20/19 20:20 Dose: 15 mg Olanzapine (Zyprexa Zydis) 5 mg PO DAILY [facility]; Protocol Stop: 04/16/19 08:59 Last Admin: 02/21/19 08:30 Dose: 5 mg Trazodone HCl (Desyrel) 50 mg PO HS [facility]; Protocol Stop: 04/17/19 20:59 Last Admin: 02/20/19 20:20 Dose: 50 mg Zolpidem Tartrate (Ambien) 5 mg PO HS PRN PRN Reason: Insomnia Stop: 04/16/19 00:24 Last Admin: 02/16/19 21:38 Dose: 5 mg General: alert HEENT: NC/AT, PERRLA, EOMI, anicteric sclerae, throat clear Neck: Supple, No JVD, No thyromegaly, +2 carotid pulse wo bruit, No LAD Cardiovascular: RRR, Normal S1, Normal S2, without murmur Abdomen: soft, non-tender, non-distended Extremities: clear Neurological: no change Internal Medicine Assmt/Plan - Assessment Assessment: 1.HTN. 2.SEIZURE DISORDER. 3.HYPERLIPIDEMIA. 4.PSYCHOSIS 5.BACK PAIN 6.CHRONIC SMOKING - Plan Plan: CONTINUE ON CURRENT MEDICATION AND DIET. Nutritional Asmnt/Malnutr-PDOC - Dietary Evaluation Malnutrition Findings (Please click <Entered> for more info): Nutritional Asmnt/Malnutrition Start: 02/20/19 14: 34 Text: Status: Complete Freq: Protocol: Document 02/20/19 14:34 AB (Rec: 02/20/19 14:37 AB [email or web address]) Nutritional Asmnt/Malnutrition Patient General Information Nutritional Screening Low Risk Diagnosis Psychosis Pertinent Medical Hx/Surgical Hx HTN, Seizure Disorder, GERD, Psychosis, DJD, Chronic smoker Subjective Information Pt is a 68-year-old male admitted on 02/14 d/t psychosis . Pt is eating an estimated 100% of meals since admit date Per Meal/Nutrition Activity Record. Dietary is currently providing an estimated 2300 kcals and 115 gm Pro to meet 100+% kcal and 100+% Pro needs . Anthropometrics HT: 57 WT: 180 LB (81.82 kg) ABW: 156 LB (70.91 kg) BMI: 28.19 (Overweight) GI/ Skin Integrity GI: WNL, Soft, Flat, Non- tender BM: 02/16 x1 I/O: 1740/ not noted Skin: WNL, Intact Nino: 22 Diet Order: Cardiac, chopped, TOAN Estimated Energy Needs: ( Geriatric, ABW) 3290-4526 kcals (25-30 kcals/ kg) 70-85g Pro (1.0-1.2 g/kg) 9856-5242 ml (25-30 ml/kg) Current Diet Order/ Nutrition Support Cardiac, chopped, TOAN Pertinent Medications Coreg, Colace, Pepcid, [place] 3 Pertinent Labs 02/14: Glucose 154, GFR 82, HDL 39 Nutritional Hx/Data Height 1.7 m Height (Calculated Centimeters) 170.2 Current Weight (lbs) 81.647 kg Weight (Calculated Kilograms) 81.6 Weight (Calculated Grams) 67053.6 [place] Body Weight 148 LB (67.27 kg) % [place] Body Weight 122 Body Mass Index (BMI) 28.1 Weight Status Overweight GI Symptoms GI Symptoms None Last BM 02/16 x1 Skin Integrity/Comment: Skin: WNL, Intact Nino: 22 Current %PO Good (75-100%) Estimated Nutritional Goals BEE in Kcals: Adj wt of IBW Calories/Kcals/Kg 25-30 Kcals Calculated 9591-3866 Protein: Adj wt of IBW Protein g/k.0-1.2 Protein Calculated 70-85 Fluid: ml 9602-3481 ml (25-30 ml/kg) Nutritional Problem No current Nutrition Prob Problem No nutrition diagnosis at this time. Etiology N/A Signs/Symptoms: N/A Malnutrition Related to Morbid Obesity Malnutrition related to morbid obesity No Intervention/Recommendation Comments Continue Cardiac, chopped, TOAN diet as tolerated. Expected Outcomes/Goals Expected Outcomes/Goals 1. PO intake to continue to meet> 75% of estimated nutritional needs. 2. Monitor PO intake, wt, nutrition related labs, and skin integrity. 3. F/U as low risk in 7-10 days, 02/27-03/02
[2019-02-21] MEDS: Guaifenesin DM 10 ML UDC PO PRN (21:13)
--- NOTE | 2019-02-21 21:34 | Progress Notes ---
DATE: Case was discussed with staff of the patient, reviewed records. The patient complained of multiple somatic complaints. I asked the staff to tell the medical doctor to evaluate him. The patient continues to be paranoid, continues to report hearing voices, voice getting better, sleeping better, eating better. He is isolating himself, less more sociable. No side effects with the medication, no sedation, no nausea, no extrapyramidal symptoms. We will continue to work with the patient in group therapy, milieu therapy, adjust medication as needed. JOB# [id number]
--- NOTE | 2019-02-22 06:48 | Progress Notes ---
DATE: 02/22/2019 SUBJECTIVE: Chart was reviewed and the patient interviewed. Also discussed the patient's condition with the staff and reviewed records and labs. The patient is still easily agitated and is still guarded and withdrawn. The patient also continued repeatedly asking for hepatitis C shot. The patient also has difficulty sleeping at night and it seems that last night he hardly slept. The patient also said that he is homeless and has no place to live. Also, the patient noted by staff to be screaming in his room by himself and for no apparent reason. ASSESSMENT: The patient is still psychotic and agitated. TREATMENT PLAN: Continue to monitor behavior and condition closely. Also continue Zyprexa 5 mg in the morning and 50 mg at bedtime. We will increase trazodone to 100 mg at bedtime. Also, we will work on placement issue. JOB# [id number]
[2019-02-22] MEDS: OLANZapine 5 mg Oral Disintegrating Tab PO SCH (09:10)
[2019-02-22] MEDS: Fish Oil 1,000 MG SGL PO SCH (09:12)
[2019-02-22] MEDS: guaiFENesin 200 MG/10 ML UDC PO PRN ×2 (16:48→20:58)
--- NOTE | 2019-02-22 23:14 | Internal Medicine Prog Note ---
Internal Medicine Subjective - Subjective Service Date: 02/22/19 Patient seen and examined:: without staff (HE STILL HAS PAIN) Patient is:: awake, verbal, ambulating, talking Per staff patient has:: no adverse event Internal Medicine Objective - Physical Exam Vitals and I&O: Vital Signs Temp 97.9 F 02/22/19 20:59 Pulse 88 02/22/19 20:59 Resp 20 02/22/19 20:59 BP 99/66 02/22/19 20:59 Pulse Ox 95 02/22/19 20:59 Intake & Output 02/22/19 02/22/19 02/23/19 06:59 18:59 06:59 Intake Total 240 1150 120 Balance 240 1150 120 Intake: Oral 240 1150 120 Other: # Voids 2 2 # Bowel Movements 0 0 Active Medications: Current Medications Acetaminophen (Tylenol) 650 mg PO Q4HR PRN PRN Reason: Mild Pain 1-3 Stop: 04/16/19 00:24 Acetaminophen (Tylenol) 650 mg PO Q4H PRN PRN Reason: TEMP ABOVE 100 Stop: 04/16/19 10:08 Carvedilol (Coreg) 3.125 mg PO BID [facility] Stop: 04/16/19 08:59 Last Admin: 02/22/19 16:47 Dose: 3.125 mg Docusate Sodium (Colace) 250 mg PO BID [facility] Stop: 04/16/19 08:59 Last Admin: 02/22/19 16:50 Dose: 250 mg Famotidine (Pepcid) 20 mg PO DAILY [facility] Stop: 04/16/19 08:59 Last Admin: 02/22/19 09:11 Dose: 20 mg Fish Oil ([place] 3) 1,000 mg PO DAILY [facility] Stop: 04/16/19 08:59 Last Admin: 02/22/19 09:12 Dose: 1,000 mg Guaifenesin (Robitussin) 200 mg PO Q4HR PRN PRN Reason: Cough or Congestion Stop: 04/21/19 18:09 Last Admin: 02/22/19 20:58 Dose: 200 mg Ibuprofen (Motrin) 400 mg PO Q8HR PRN PRN Reason: moderate pain (4-6) Stop: 04/16/19 00:24 Last Admin: 02/20/19 08:21 Dose: 400 mg Levetiracetam (Keppra) 500 mg PO BID [facility] Stop: 04/16/19 08:59 Last Admin: 02/22/19 16:51 Dose: 500 mg Lisinopril (Zestril) 20 mg PO BID [facility] Stop: 04/16/19 08:59 Last Admin: 02/22/19 16:51 Dose: 20 mg Lorazepam (Ativan) 0.5 mg PO Q4HR PRN; Protocol PRN Reason: Anxiety Stop: 04/23/19 14:58 Miscellaneous (Icosapent Ethyl [Vascepa]) 2 gm PO BID [facility] Stop: 04/16/19 08:59 Olanzapine (Zyprexa) 15 mg PO HS [facility]; Protocol Stop: 04/16/19 20:59 Last Admin: 02/22/19 20:36 Dose: 15 mg Olanzapine (Zyprexa Zydis) 5 mg PO DAILY [facility]; Protocol Stop: 04/16/19 08:59 Last Admin: 02/22/19 09:10 Dose: 5 mg Trazodone HCl (Desyrel) 100 mg PO HS [facility]; Protocol Stop: 04/23/19 20:59 Last Admin: 02/22/19 20:36 Dose: 100 mg General: alert HEENT: NC/AT, PERRLA, EOMI, anicteric sclerae, throat clear Neck: Supple, No JVD, No thyromegaly, +2 carotid pulse wo bruit, No LAD Cardiovascular: RRR, Normal S1, Normal S2, without murmur Abdomen: soft, non-tender, non-distended Extremities: clear Neurological: no change Internal Medicine Assmt/Plan - Assessment Assessment: 1.HTN. 2.SEIZURE DISORDER. 3.HYPERLIPIDEMIA. 4.PSYCHOSIS 5.BACK PAIN 6.CHRONIC SMOKING - Plan Plan: CONTINUE ON CURRENT MEDICATION AND DIET. Nutritional Asmnt/Malnutr-PDOC - Dietary Evaluation Malnutrition Findings (Please click <Entered> for more info): Nutritional Asmnt/Malnutrition Start: 02/20/19 14: 34 Text: Status: Complete Freq: Protocol: Document 02/20/19 14:34 AB (Rec: 02/20/19 14:37 AB [email or web address]) Nutritional Asmnt/Malnutrition Patient General Information Nutritional Screening Low Risk Diagnosis Psychosis Pertinent Medical Hx/Surgical Hx HTN, Seizure Disorder, GERD, Psychosis, DJD, Chronic smoker Subjective Information Pt is a 68-year-old male admitted on 02/14 d/t psychosis . Pt is eating an estimated 100% of meals since admit date Per Meal/Nutrition Activity Record. Dietary is currently providing an estimated 2300 kcals and 115 gm Pro to meet 100+% kcal and 100+% Pro needs . Anthropometrics HT: 57 WT: 180 LB (81.82 kg) ABW: 156 LB (70.91 kg) BMI: 28.19 (Overweight) GI/ Skin Integrity GI: WNL, Soft, Flat, Non- tender BM: 02/16 x1 I/O: 1740/ not noted Skin: WNL, Intact Nino: 22 Diet Order: Cardiac, chopped, TOAN Estimated Energy Needs: ( Geriatric, ABW) 6500-1431 kcals (25-30 kcals/ kg) 70-85g Pro (1.0-1.2 g/kg) 9888-4986 ml (25-30 ml/kg) Current Diet Order/ Nutrition Support Cardiac, chopped, TOAN Pertinent Medications Coreg, Colace, Pepcid, [place] 3 Pertinent Labs 02/14: Glucose 154, GFR 82, HDL 39 Nutritional Hx/Data Height 1.7 m Height (Calculated Centimeters) 170.2 Current Weight (lbs) 81.647 kg Weight (Calculated Kilograms) 81.6 Weight (Calculated Grams) 26055.6 [place] Body Weight 148 LB (67.27 kg) % [place] Body Weight 122 Body Mass Index (BMI) 28.1 Weight Status Overweight GI Symptoms GI Symptoms None Last BM 02/16 x1 Skin Integrity/Comment: Skin: WNL, Intact Nino: 22 Current %PO Good (75-100%) Estimated Nutritional Goals BEE in Kcals: Adj wt of IBW Calories/Kcals/Kg 25-30 Kcals Calculated 2456-0776 Protein: Adj wt of IBW Protein g/k.0-1.2 Protein Calculated 70-85 Fluid: ml 9869-2780 ml (25-30 ml/kg) Nutritional Problem No current Nutrition Prob Problem No nutrition diagnosis at this time. Etiology N/A Signs/Symptoms: N/A Malnutrition Related to Morbid Obesity Malnutrition related to morbid obesity No Intervention/Recommendation Comments Continue Cardiac, chopped, TOAN diet as tolerated. Expected Outcomes/Goals Expected Outcomes/Goals 1. PO intake to continue to meet> 75% of estimated nutritional needs. 2. Monitor PO intake, wt, nutrition related labs, and skin integrity. 3. F/U as low risk in 7-10 days, 02/27-03/02
[2019-02-23] MEDS: Fish Oil 1,000 MG SGL PO SCH (08:45)
[2019-02-23] MEDS: OLANZapine 5 mg Oral Disintegrating Tab PO SCH (08:45)
[2019-02-23] MEDS: guaiFENesin 200 MG/10 ML UDC PO PRN (10:05)
--- NOTE | 2019-02-23 15:38 | Internal Medicine Prog Note ---
Internal Medicine Subjective - Subjective Service Date: 02/23/19 Patient seen and examined:: without staff (HE FEELS BETTER) Patient is:: awake, verbal, ambulating, talking Per staff patient has:: no adverse event Internal Medicine Objective - Physical Exam Vitals and I&O: Vital Signs Temp 98.4 F 02/23/19 14:00 Pulse 88 02/23/19 14:00 Resp 18 02/23/19 14:00 BP 115/92 02/23/19 14:00 Pulse Ox 95 02/23/19 14:00 Intake & Output 02/22/19 02/23/19 02/23/19 18:59 06:59 18:59 Intake Total 1150 240 Balance 1150 240 Intake: Oral 1150 240 Other: # Voids 2 # Bowel Movements 0 Active Medications: Current Medications Acetaminophen (Tylenol) 650 mg PO Q4HR PRN PRN Reason: Mild Pain 1-3 Stop: 04/16/19 00:24 Acetaminophen (Tylenol) 650 mg PO Q4H PRN PRN Reason: TEMP ABOVE 100 Stop: 04/16/19 10:08 Carvedilol (Coreg) 3.125 mg PO BID [facility] Stop: 04/16/19 08:59 Last Admin: 02/23/19 08:46 Dose: Not Given Docusate Sodium (Colace) 250 mg PO BID [facility] Stop: 04/16/19 08:59 Last Admin: 02/23/19 08:45 Dose: 250 mg Famotidine (Pepcid) 20 mg PO DAILY [facility] Stop: 04/16/19 08:59 Last Admin: 02/23/19 08:45 Dose: 20 mg Fish Oil ([place] 3) 1,000 mg PO DAILY [facility] Stop: 04/16/19 08:59 Last Admin: 02/23/19 08:45 Dose: 1,000 mg Guaifenesin (Robitussin) 200 mg PO Q4HR PRN PRN Reason: Cough or Congestion Stop: 04/21/19 18:09 Last Admin: 02/23/19 10:05 Dose: 200 mg Ibuprofen (Motrin) 400 mg PO Q8HR PRN PRN Reason: moderate pain (4-6) Stop: 04/16/19 00:24 Last Admin: 02/20/19 08:21 Dose: 400 mg Levetiracetam (Keppra) 500 mg PO BID [facility] Stop: 04/16/19 08:59 Last Admin: 02/23/19 08:45 Dose: 500 mg Lisinopril (Zestril) 20 mg PO BID [facility] Stop: 04/16/19 08:59 Last Admin: 02/23/19 08:46 Dose: Not Given Lorazepam (Ativan) 0.5 mg PO Q4HR PRN; Protocol PRN Reason: Anxiety Stop: 04/23/19 14:58 Miscellaneous (Icosapent Ethyl [Vascepa]) 2 gm PO BID [facility] Stop: 04/16/19 08:59 Olanzapine (Zyprexa) 15 mg PO HS [facility]; Protocol Stop: 04/16/19 20:59 Last Admin: 02/22/19 20:36 Dose: 15 mg Olanzapine (Zyprexa Zydis) 5 mg PO DAILY [facility]; Protocol Stop: 04/16/19 08:59 Last Admin: 02/23/19 08:45 Dose: 5 mg Trazodone HCl (Desyrel) 100 mg PO HS [facility]; Protocol Stop: 04/23/19 20:59 Last Admin: 02/22/19 20:36 Dose: 100 mg General: alert HEENT: NC/AT, PERRLA, EOMI, anicteric sclerae, throat clear Neck: Supple, No JVD, No thyromegaly, +2 carotid pulse wo bruit, No LAD Cardiovascular: RRR, Normal S1, Normal S2, without murmur Abdomen: soft, non-tender, non-distended Extremities: clear Neurological: no change Internal Medicine Assmt/Plan - Assessment Assessment: 1.HTN. 2.SEIZURE DISORDER. 3.HYPERLIPIDEMIA. 4.PSYCHOSIS 5.BACK PAIN 6.CHRONIC SMOKING - Plan Plan: CONTINUE ON CURRENT MEDICATION AND DIET. Nutritional Asmnt/Malnutr-PDOC - Dietary Evaluation Malnutrition Findings (Please click <Entered> for more info): Nutritional Asmnt/Malnutrition Start: 02/20/19 14: 34 Text: Status: Complete Freq: Protocol: Document 02/20/19 14:34 AB (Rec: 02/20/19 14:37 AB [email or web address]) Nutritional Asmnt/Malnutrition Patient General Information Nutritional Screening Low Risk Diagnosis Psychosis Pertinent Medical Hx/Surgical Hx HTN, Seizure Disorder, GERD, Psychosis, DJD, Chronic smoker Subjective Information Pt is a 68-year-old male admitted on 02/14 d/t psychosis . Pt is eating an estimated 100% of meals since admit date Per Meal/Nutrition Activity Record. Dietary is currently providing an estimated 2300 kcals and 115 gm Pro to meet 100+% kcal and 100+% Pro needs . Anthropometrics HT: 57 WT: 180 LB (81.82 kg) ABW: 156 LB (70.91 kg) BMI: 28.19 (Overweight) GI/ Skin Integrity GI: WNL, Soft, Flat, Non- tender BM: 02/16 x1 I/O: 1740/ not noted Skin: WNL, Intact Nino: 22 Diet Order: Cardiac, chopped, TOAN Estimated Energy Needs: ( Geriatric, ABW) 0093-1797 kcals (25-30 kcals/ kg) 70-85g Pro (1.0-1.2 g/kg) 0423-5379 ml (25-30 ml/kg) Current Diet Order/ Nutrition Support Cardiac, chopped, TOAN Pertinent Medications Coreg, Colace, Pepcid, [place] 3 Pertinent Labs 02/14: Glucose 154, GFR 82, HDL 39 Nutritional Hx/Data Height 1.7 m Height (Calculated Centimeters) 170.2 Current Weight (lbs) 81.647 kg Weight (Calculated Kilograms) 81.6 Weight (Calculated Grams) 74623.6 [place] Body Weight 148 LB (67.27 kg) % [place] Body Weight 122 Body Mass Index (BMI) 28.1 Weight Status Overweight GI Symptoms GI Symptoms None Last BM 02/16 x1 Skin Integrity/Comment: Skin: WNL, Intact Nino: 22 Current %PO Good (75-100%) Estimated Nutritional Goals BEE in Kcals: Adj wt of IBW Calories/Kcals/Kg 25-30 Kcals Calculated 8278-4980 Protein: Adj wt of IBW Protein g/k.0-1.2 Protein Calculated 70-85 Fluid: ml 0942-9107 ml (25-30 ml/kg) Nutritional Problem No current Nutrition Prob Problem No nutrition diagnosis at this time. Etiology N/A Signs/Symptoms: N/A Malnutrition Related to Morbid Obesity Malnutrition related to morbid obesity No Intervention/Recommendation Comments Continue Cardiac, chopped, TOAN diet as tolerated. Expected Outcomes/Goals Expected Outcomes/Goals 1. PO intake to continue to meet> 75% of estimated nutritional needs. 2. Monitor PO intake, wt, nutrition related labs, and skin integrity. 3. F/U as low risk in 7-10 days, 02/27-03/02
[2019-02-24] MEDS: guaiFENesin 200 MG/10 ML UDC PO PRN (08:22)
[2019-02-24] MEDS: OLANZapine 5 mg Oral Disintegrating Tab PO SCH (08:23)
[2019-02-24] MEDS: Fish Oil 1,000 MG SGL PO SCH (08:23)
--- NOTE | 2019-02-24 18:04 | Internal Medicine Prog Note ---
Internal Medicine Subjective - Subjective Service Date: 02/24/19 Patient seen and examined:: without staff (HE FEELS BETTER) Patient is:: awake, verbal, ambulating, talking Per staff patient has:: no adverse event Internal Medicine Objective - Physical Exam Vitals and I&O: Vital Signs Temp 98.1 F 02/24/19 14:00 Pulse 85 02/24/19 16:16 Resp 20 02/24/19 14:00 BP 99/69 02/24/19 16:16 Pulse Ox 94 02/24/19 14:00 Intake & Output 02/23/19 02/24/19 02/24/19 18:59 06:59 18:59 Intake Total 3186 000 3088 Balance 1764 746 4120 Intake: Oral 1776 006 3547 Other: # Voids 2 # Bowel Movements 1 0 1 Active Medications: Current Medications Acetaminophen (Tylenol) 650 mg PO Q4HR PRN PRN Reason: Mild Pain 1-3 Stop: 04/16/19 00:24 Acetaminophen (Tylenol) 650 mg PO Q4H PRN PRN Reason: TEMP ABOVE 100 Stop: 04/16/19 10:08 Carvedilol (Coreg) 3.125 mg PO BID [facility] Stop: 04/16/19 08:59 Last Admin: 02/24/19 16:13 Dose: Not Given Docusate Sodium (Colace) 250 mg PO BID [facility] Stop: 04/16/19 08:59 Last Admin: 02/24/19 16:15 Dose: 250 mg Famotidine (Pepcid) 20 mg PO DAILY [facility] Stop: 04/16/19 08:59 Last Admin: 02/24/19 08:24 Dose: 20 mg Fish Oil ([place] 3) 1,000 mg PO DAILY [facility] Stop: 04/16/19 08:59 Last Admin: 02/24/19 08:23 Dose: 1,000 mg Guaifenesin (Robitussin) 200 mg PO Q4HR PRN PRN Reason: Cough or Congestion Stop: 04/21/19 18:09 Last Admin: 02/24/19 08:22 Dose: 200 mg Ibuprofen (Motrin) 400 mg PO Q8HR PRN PRN Reason: moderate pain (4-6) Stop: 04/16/19 00:24 Last Admin: 02/24/19 08:23 Dose: 400 mg Levetiracetam (Keppra) 500 mg PO BID [facility] Stop: 04/16/19 08:59 Last Admin: 02/24/19 16:12 Dose: 500 mg Lisinopril (Zestril) 20 mg PO BID [facility] Stop: 04/16/19 08:59 Last Admin: 02/24/19 16:16 Dose: Not Given Lorazepam (Ativan) 0.5 mg PO Q4HR PRN; Protocol PRN Reason: Anxiety Stop: 04/23/19 14:58 Miscellaneous (Icosapent Ethyl [Vascepa]) 2 gm PO BID [facility] Stop: 04/16/19 08:59 Olanzapine (Zyprexa) 15 mg PO HS [facility]; Protocol Stop: 04/16/19 20:59 Last Admin: 02/23/19 22:04 Dose: 15 mg Olanzapine (Zyprexa Zydis) 5 mg PO DAILY [facility]; Protocol Stop: 04/16/19 08:59 Last Admin: 02/24/19 08:23 Dose: 5 mg Trazodone HCl (Desyrel) 100 mg PO HS [facility]; Protocol Stop: 04/23/19 20:59 Last Admin: 02/23/19 22:04 Dose: 100 mg General: alert HEENT: NC/AT, PERRLA, EOMI, anicteric sclerae, throat clear Neck: Supple, No JVD, No thyromegaly, +2 carotid pulse wo bruit, No LAD Cardiovascular: RRR, Normal S1, Normal S2, without murmur Abdomen: soft, non-tender, non-distended Extremities: clear Neurological: no change Internal Medicine Assmt/Plan - Assessment Assessment: 1.HTN. 2.SEIZURE DISORDER. 3.HYPERLIPIDEMIA. 4.PSYCHOSIS 5.BACK PAIN 6.CHRONIC SMOKING - Plan Plan: CONTINUE ON CURRENT MEDICATION AND DIET. Nutritional Asmnt/Malnutr-PDOC - Dietary Evaluation Malnutrition Findings (Please click <Entered> for more info): Nutritional Asmnt/Malnutrition Start: 02/20/19 14: 34 Text: Status: Complete Freq: Protocol: Document 02/20/19 14:34 AB (Rec: 02/20/19 14:37 AB [email or web address]) Nutritional Asmnt/Malnutrition Patient General Information Nutritional Screening Low Risk Diagnosis Psychosis Pertinent Medical Hx/Surgical Hx HTN, Seizure Disorder, GERD, Psychosis, DJD, Chronic smoker Subjective Information Pt is a 68-year-old male admitted on 02/14 d/t psychosis . Pt is eating an estimated 100% of meals since admit date Per Meal/Nutrition Activity Record. Dietary is currently providing an estimated 2300 kcals and 115 gm Pro to meet 100+% kcal and 100+% Pro needs . Anthropometrics HT: 57 WT: 180 LB (81.82 kg) ABW: 156 LB (70.91 kg) BMI: 28.19 (Overweight) GI/ Skin Integrity GI: WNL, Soft, Flat, Non- tender BM: 02/16 x1 I/O: 1740/ not noted Skin: WNL, Intact Nino: 22 Diet Order: Cardiac, chopped, TOAN Estimated Energy Needs: ( Geriatric, ABW) 0332-2338 kcals (25-30 kcals/ kg) 70-85g Pro (1.0-1.2 g/kg) 9940-8064 ml (25-30 ml/kg) Current Diet Order/ Nutrition Support Cardiac, chopped, TOAN Pertinent Medications Coreg, Colace, Pepcid, [place] 3 Pertinent Labs 02/14: Glucose 154, GFR 82, HDL 39 Nutritional Hx/Data Height 1.7 m Height (Calculated Centimeters) 170.2 Current Weight (lbs) 81.647 kg Weight (Calculated Kilograms) 81.6 Weight (Calculated Grams) 12802.6 [place] Body Weight 148 LB (67.27 kg) % [place] Body Weight 122 Body Mass Index (BMI) 28.1 Weight Status Overweight GI Symptoms GI Symptoms None Last BM 02/16 x1 Skin Integrity/Comment: Skin: WNL, Intact Nino: 22 Current %PO Good (75-100%) Estimated Nutritional Goals BEE in Kcals: Adj wt of IBW Calories/Kcals/Kg 25-30 Kcals Calculated 5377-8007 Protein: Adj wt of IBW Protein g/k.0-1.2 Protein Calculated 70-85 Fluid: ml 0428-5835 ml (25-30 ml/kg) Nutritional Problem No current Nutrition Prob Problem No nutrition diagnosis at this time. Etiology N/A Signs/Symptoms: N/A Malnutrition Related to Morbid Obesity Malnutrition related to morbid obesity No Intervention/Recommendation Comments Continue Cardiac, chopped, TOAN diet as tolerated. Expected Outcomes/Goals Expected Outcomes/Goals 1. PO intake to continue to meet> 75% of estimated nutritional needs. 2. Monitor PO intake, wt, nutrition related labs, and skin integrity. 3. F/U as low risk in 7-10 days, 02/27-03/02
[2019-02-25] MEDS: guaiFENesin 200 MG/10 ML UDC PO PRN ×2 (08:33→21:17)
[2019-02-25] MEDS: Fish Oil 1,000 MG SGL PO SCH (08:33)
[2019-02-25] MEDS: OLANZapine 5 mg Oral Disintegrating Tab PO SCH (08:33)
--- NOTE | 2019-02-25 19:06 | Internal Medicine Prog Note ---
Internal Medicine Subjective - Subjective Service Date: 02/25/19 Patient seen and examined:: without staff (HE FEELS WELL) Patient is:: awake, verbal, ambulating, talking Per staff patient has:: no adverse event Internal Medicine Objective - Physical Exam Vitals and I&O: Vital Signs Temp 97.6 F 02/25/19 14:00 Pulse 90 02/25/19 16:43 Resp 20 02/25/19 14:00 BP 120/87 02/25/19 16:43 Pulse Ox 98 02/25/19 14:00 Intake & Output 02/25/19 02/25/19 02/26/19 06:59 18:59 06:59 Intake Total 420 1100 Balance 420 1100 Intake: Oral 420 1100 Other: # Voids 2 4 # Bowel Movements 0 1 Active Medications: Current Medications Acetaminophen (Tylenol) 650 mg PO Q4HR PRN PRN Reason: Mild Pain 1-3 Stop: 04/16/19 00:24 Acetaminophen (Tylenol) 650 mg PO Q4H PRN PRN Reason: TEMP ABOVE 100 Stop: 04/16/19 10:08 Carvedilol (Coreg) 3.125 mg PO BID [facility] Stop: 04/16/19 08:59 Last Admin: 02/25/19 16:42 Dose: 3.125 mg Docusate Sodium (Colace) 250 mg PO BID [facility] Stop: 04/16/19 08:59 Last Admin: 02/25/19 16:43 Dose: 250 mg Famotidine (Pepcid) 20 mg PO DAILY [facility] Stop: 04/16/19 08:59 Last Admin: 02/25/19 08:32 Dose: 20 mg Fish Oil ([place] 3) 1,000 mg PO DAILY [facility] Stop: 04/16/19 08:59 Last Admin: 02/25/19 08:33 Dose: 1,000 mg Guaifenesin (Robitussin) 200 mg PO Q4HR PRN PRN Reason: Cough or Congestion Stop: 04/21/19 18:09 Last Admin: 02/25/19 08:33 Dose: 200 mg Ibuprofen (Motrin) 400 mg PO Q8HR PRN PRN Reason: moderate pain (4-6) Stop: 04/16/19 00:24 Last Admin: 02/24/19 08:23 Dose: 400 mg Levetiracetam (Keppra) 500 mg PO BID [facility] Stop: 04/16/19 08:59 Last Admin: 02/25/19 16:43 Dose: 500 mg Lisinopril (Zestril) 20 mg PO BID [facility] Stop: 04/16/19 08:59 Last Admin: 02/25/19 16:43 Dose: 20 mg Lorazepam (Ativan) 0.5 mg PO Q4HR PRN; Protocol PRN Reason: Anxiety Stop: 04/23/19 14:58 Last Admin: 02/25/19 16:43 Dose: 0.5 mg Miscellaneous (Icosapent Ethyl [Vascepa]) 2 gm PO BID [facility] Stop: 04/16/19 08:59 Olanzapine (Zyprexa) 15 mg PO HS [facility]; Protocol Stop: 04/16/19 20:59 Last Admin: 02/24/19 20:48 Dose: 15 mg Olanzapine (Zyprexa Zydis) 5 mg PO DAILY [facility]; Protocol Stop: 04/16/19 08:59 Last Admin: 02/25/19 08:33 Dose: 5 mg Trazodone HCl (Desyrel) 100 mg PO HS [facility]; Protocol Stop: 04/23/19 20:59 Last Admin: 02/24/19 20:48 Dose: 100 mg General: alert HEENT: NC/AT, PERRLA, EOMI, anicteric sclerae, throat clear Neck: Supple, No JVD, No thyromegaly, +2 carotid pulse wo bruit, No LAD Cardiovascular: RRR, Normal S1, Normal S2, without murmur Abdomen: soft, non-tender, non-distended Extremities: clear Neurological: no change Internal Medicine Assmt/Plan - Assessment Assessment: 1.HTN. 2.SEIZURE DISORDER. 3.HYPERLIPIDEMIA. 4.PSYCHOSIS 5.BACK PAIN 6.CHRONIC SMOKING - Plan Plan: CONTINUE ON CURRENT MEDICATION AND DIET. Nutritional Asmnt/Malnutr-PDOC - Dietary Evaluation Malnutrition Findings (Please click <Entered> for more info): Nutritional Asmnt/Malnutrition Start: 02/20/19 14: 34 Text: Status: Complete Freq: Protocol: Document 02/20/19 14:34 AB (Rec: 02/20/19 14:37 AB [email or web address]) Nutritional Asmnt/Malnutrition Patient General Information Nutritional Screening Low Risk Diagnosis Psychosis Pertinent Medical Hx/Surgical Hx HTN, Seizure Disorder, GERD, Psychosis, DJD, Chronic smoker Subjective Information Pt is a 68-year-old male admitted on 02/14 d/t psychosis . Pt is eating an estimated 100% of meals since admit date Per Meal/Nutrition Activity Record. Dietary is currently providing an estimated 2300 kcals and 115 gm Pro to meet 100+% kcal and 100+% Pro needs . Anthropometrics HT: 57 WT: 180 LB (81.82 kg) ABW: 156 LB (70.91 kg) BMI: 28.19 (Overweight) GI/ Skin Integrity GI: WNL, Soft, Flat, Non- tender BM: 02/16 x1 I/O: 1740/ not noted Skin: WNL, Intact Nino: 22 Diet Order: Cardiac, chopped, TOAN Estimated Energy Needs: ( Geriatric, ABW) 0308-3763 kcals (25-30 kcals/ kg) 70-85g Pro (1.0-1.2 g/kg) 0961-2279 ml (25-30 ml/kg) Current Diet Order/ Nutrition Support Cardiac, chopped, TOAN Pertinent Medications Coreg, Colace, Pepcid, [place] 3 Pertinent Labs 02/14: Glucose 154, GFR 82, HDL 39 Nutritional Hx/Data Height 1.7 m Height (Calculated Centimeters) 170.2 Current Weight (lbs) 81.647 kg Weight (Calculated Kilograms) 81.6 Weight (Calculated Grams) 66759.6 [place] Body Weight 148 LB (67.27 kg) % [place] Body Weight 122 Body Mass Index (BMI) 28.1 Weight Status Overweight GI Symptoms GI Symptoms None Last BM 02/16 x1 Skin Integrity/Comment: Skin: WNL, Intact Nino: 22 Current %PO Good (75-100%) Estimated Nutritional Goals BEE in Kcals: Adj wt of IBW Calories/Kcals/Kg 25-30 Kcals Calculated 7763-4456 Protein: Adj wt of IBW Protein g/k.0-1.2 Protein Calculated 70-85 Fluid: ml 1456-6425 ml (25-30 ml/kg) Nutritional Problem No current Nutrition Prob Problem No nutrition diagnosis at this time. Etiology N/A Signs/Symptoms: N/A Malnutrition Related to Morbid Obesity Malnutrition related to morbid obesity No Intervention/Recommendation Comments Continue Cardiac, chopped, TOAN diet as tolerated. Expected Outcomes/Goals Expected Outcomes/Goals 1. PO intake to continue to meet> 75% of estimated nutritional needs. 2. Monitor PO intake, wt, nutrition related labs, and skin integrity. 3. F/U as low risk in 7-10 days, 02/27-03/02
--- NOTE | 2019-02-25 22:18 | Progress Notes ---
DATE: 02/25/2019 SUBJECTIVE: The patient is currently in the hospital, admitted on 02/14/2019, states he is here because "back pain." The patient states that he is homeless and was apparently screaming in his room for no reason and states he wants to go back to his hotel room, pacing the unit, forgetful, repeats himself. Otherwise, calm, generally cooperative. A public guardian is involved with placement. The patient had apparently been at [place]. 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 We will continue to monitor. JOB# [id number]
[2019-02-26] MEDS: guaiFENesin 200 MG/10 ML UDC PO PRN ×2 (08:19→20:58)
[2019-02-26] MEDS: Fish Oil 1,000 MG SGL PO SCH (08:19)
[2019-02-26] MEDS: OLANZapine 5 mg Oral Disintegrating Tab PO SCH (08:20)
--- NOTE | 2019-02-26 20:21 | Internal Medicine Prog Note ---
Internal Medicine Subjective - Subjective Service Date: 02/26/19 Patient seen and examined:: without staff (HE FEELS BETTER) Patient is:: awake, verbal, ambulating, talking Per staff patient has:: no adverse event Internal Medicine Objective - Physical Exam Vitals and I&O: Vital Signs Temp 97.4 F 02/26/19 14:00 Pulse 56 02/26/19 16:30 Resp 18 02/26/19 14:00 BP 120/93 02/26/19 16:30 Pulse Ox 94 02/26/19 14:00 Intake & Output 02/26/19 02/26/19 02/27/19 06:59 18:59 06:59 Intake Total 120 1150 Balance 120 1150 Intake: Oral 120 1150 Other: # Voids 3 Active Medications: Current Medications Acetaminophen (Tylenol) 650 mg PO Q4HR PRN PRN Reason: Mild Pain 1-3 Stop: 04/16/19 00:24 Acetaminophen (Tylenol) 650 mg PO Q4H PRN PRN Reason: TEMP ABOVE 100 Stop: 04/16/19 10:08 Carvedilol (Coreg) 3.125 mg PO BID [facility] Stop: 04/16/19 08:59 Last Admin: 02/26/19 16:29 Dose: 3.125 mg Docusate Sodium (Colace) 250 mg PO BID [facility] Stop: 04/16/19 08:59 Last Admin: 02/26/19 16:30 Dose: 250 mg Famotidine (Pepcid) 20 mg PO DAILY [facility] Stop: 04/16/19 08:59 Last Admin: 02/26/19 08:19 Dose: 20 mg Fish Oil ([place] 3) 1,000 mg PO DAILY [facility] Stop: 04/16/19 08:59 Last Admin: 02/26/19 08:19 Dose: 1,000 mg Guaifenesin (Robitussin) 200 mg PO Q4HR PRN PRN Reason: Cough or Congestion Stop: 04/21/19 18:09 Last Admin: 02/26/19 08:19 Dose: 200 mg Ibuprofen (Motrin) 400 mg PO Q8HR PRN PRN Reason: moderate pain (4-6) Stop: 04/16/19 00:24 Last Admin: 02/26/19 16:56 Dose: 400 mg Levetiracetam (Keppra) 500 mg PO BID [facility] Stop: 04/16/19 08:59 Last Admin: 02/26/19 16:30 Dose: 500 mg Lisinopril (Zestril) 20 mg PO BID [facility] Stop: 04/16/19 08:59 Last Admin: 02/26/19 16:30 Dose: 20 mg Lorazepam (Ativan) 0.5 mg PO Q4HR PRN; Protocol PRN Reason: Anxiety Stop: 04/23/19 14:58 Last Admin: 02/26/19 00:51 Dose: 0.5 mg Miscellaneous (Icosapent Ethyl [Vascepa]) 2 gm PO BID [facility] Stop: 04/16/19 08:59 Olanzapine (Zyprexa) 15 mg PO HS [facility]; Protocol Stop: 04/16/19 20:59 Last Admin: 02/25/19 21:09 Dose: 15 mg Olanzapine (Zyprexa Zydis) 5 mg PO DAILY [facility]; Protocol Stop: 04/16/19 08:59 Last Admin: 02/26/19 08:20 Dose: 5 mg Trazodone HCl (Desyrel) 100 mg PO HS [facility]; Protocol Stop: 04/23/19 20:59 Last Admin: 02/25/19 21:09 Dose: 100 mg General: alert HEENT: NC/AT, PERRLA, EOMI, anicteric sclerae, throat clear Neck: Supple, No JVD, No thyromegaly, +2 carotid pulse wo bruit, No LAD Cardiovascular: RRR, Normal S1, Normal S2, without murmur Abdomen: soft, non-tender, non-distended Extremities: clear Neurological: no change Internal Medicine Assmt/Plan - Assessment Assessment: 1.HTN. 2.SEIZURE DISORDER. 3.HYPERLIPIDEMIA. 4.PSYCHOSIS 5.BACK PAIN 6.CHRONIC SMOKING - Plan Plan: CONTINUE ON CURRENT MEDICATION AND DIET. Nutritional Asmnt/Malnutr-PDOC - Dietary Evaluation Malnutrition Findings (Please click <Entered> for more info): Nutritional Asmnt/Malnutrition Start: 02/20/19 14: 34 Text: Status: Complete Freq: Protocol: Document 02/20/19 14:34 AB (Rec: 02/20/19 14:37 AB [email or web address]) Nutritional Asmnt/Malnutrition Patient General Information Nutritional Screening Low Risk Diagnosis Psychosis Pertinent Medical Hx/Surgical Hx HTN, Seizure Disorder, GERD, Psychosis, DJD, Chronic smoker Subjective Information Pt is a 68-year-old male admitted on 02/14 d/t psychosis . Pt is eating an estimated 100% of meals since admit date Per Meal/Nutrition Activity Record. Dietary is currently providing an estimated 2300 kcals and 115 gm Pro to meet 100+% kcal and 100+% Pro needs . Anthropometrics HT: 57 WT: 180 LB (81.82 kg) ABW: 156 LB (70.91 kg) BMI: 28.19 (Overweight) GI/ Skin Integrity GI: WNL, Soft, Flat, Non- tender BM: 02/16 x1 I/O: 1740/ not noted Skin: WNL, Intact Nino: 22 Diet Order: Cardiac, chopped, TOAN Estimated Energy Needs: ( Geriatric, ABW) 4125-2075 kcals (25-30 kcals/ kg) 70-85g Pro (1.0-1.2 g/kg) 2147-3651 ml (25-30 ml/kg) Current Diet Order/ Nutrition Support Cardiac, chopped, TOAN Pertinent Medications Coreg, Colace, Pepcid, [place] 3 Pertinent Labs 02/14: Glucose 154, GFR 82, HDL 39 Nutritional Hx/Data Height 1.7 m Height (Calculated Centimeters) 170.2 Current Weight (lbs) 81.647 kg Weight (Calculated Kilograms) 81.6 Weight (Calculated Grams) 12229.6 [place] Body Weight 148 LB (67.27 kg) % [place] Body Weight 122 Body Mass Index (BMI) 28.1 Weight Status Overweight GI Symptoms GI Symptoms None Last BM 02/16 x1 Skin Integrity/Comment: Skin: WNL, Intact Nino: 22 Current %PO Good (75-100%) Estimated Nutritional Goals BEE in Kcals: Adj wt of IBW Calories/Kcals/Kg 25-30 Kcals Calculated 8323-4070 Protein: Adj wt of IBW Protein g/k.0-1.2 Protein Calculated 70-85 Fluid: ml 8067-0753 ml (25-30 ml/kg) Nutritional Problem No current Nutrition Prob Problem No nutrition diagnosis at this time. Etiology N/A Signs/Symptoms: N/A Malnutrition Related to Morbid Obesity Malnutrition related to morbid obesity No Intervention/Recommendation Comments Continue Cardiac, chopped, TOAN diet as tolerated. Expected Outcomes/Goals Expected Outcomes/Goals 1. PO intake to continue to meet> 75% of estimated nutritional needs. 2. Monitor PO intake, wt, nutrition related labs, and skin integrity. 3. F/U as low risk in 7-10 days, 02/27-03/02
--- NOTE | 2019-02-27 08:04 | Progress Notes ---
DATE: 02/24/2019 DATE OF SERVICE: 02/24/2019. SUBJECTIVE: Chart reviewed and the patient interviewed. Also discussed the patient's condition with the staff and reviewed records and labs. The patient seems to be slightly calmer, but he is still in irritable and agitated mood. The patient also is still complaining of pain and asking for more pain medications. Also, still having mood swings and irritability. Otherwise, the patient is compliant with taking his medications with no side effects of medications. ASSESSMENT: The patient is still in irritable and angry mood. TREATMENT PLAN: We will continue monitoring behavior and condition closely. Also, Zyprexa continued to be given in a dose of 5 mg in the morning and 50 mg at bedtime. The patient also is sleeping better with trazodone 100 mg at bedtime and we will continue current dose and we will continue to follow up closely. [facility]# [id number]
--- NOTE | 2019-02-27 08:04 | Progress Notes ---
DATE: 02/26/2019 SUBJECTIVE: The patient is in the hospital, asking for melatonin, complaining of back pain, poor sleep, noted to be calm, generally more cooperative, no agitation, mostly keeps to self, taking dosing of Zyprexa. No agitation, no escalation of behaviors. Staff noting he seems to be sleeping okay. He is pretty forgetful, not the best historian, still easily agitated. PLAN: We will continue to monitor. The patient remains forgetful and this might be his baseline. We will continue to monitor. No side effects at this time. Continue dosing of Zyprexa. JOB# [id number]
--- NOTE | 2019-02-27 08:47 | Progress Notes ---
DATE: SUBJECTIVE: Chart reviewed and the patient interviewed. Also discussed the patient's condition with the staff and reviewed records and labs. "Who are you." The patient is still forgetful and still has labile affect. The patient also is still demanding and easily agitated and easily irritable, but at the same time, he seems to be slightly easier to redirect him and to calm him down. The patient also still seems to be suspicious and paranoid. On the other hand, the patient is sleeping better and personal hygiene is slightly improved. Also, he is compliant with taking his medications with no side effects of medications. ASSESSMENT: The patient is still agitated and is still in irritable mood. TREATMENT PLAN: Continue to monitor his behavior and his condition closely. Also, we will increase Zyprexa to 5 mg in the morning and 20 mg at bedtime and continue to follow up closely. JOB# [id number]
[2019-02-27] MEDS: Fish Oil 1,000 MG SGL PO SCH (09:12)
[2019-02-27] MEDS: OLANZapine 5 mg Oral Disintegrating Tab PO SCH (09:14)
[2019-02-27] MEDS: guaiFENesin 200 MG/10 ML UDC PO PRN ×2 (09:31→21:04)
--- NOTE | 2019-02-27 13:36 | Progress Notes ---
DATE: 02/23/2019 SUBJECTIVE: Chart was reviewed and the patient interviewed. Also discussed the patient's condition with the staff and reviewed records and labs. The patient is still easily agitated and is still yelling and screaming in his room all by himself. He also still has difficulty following staff directions. The patient also is forgetful and still needs lots of redirections and he continued to ask questions over and over and repeating asking the same questions. The patient is also preoccupied, was asking for hepatic shots and ____ I explained to him that he has no hepatitis C, but he insisted that he needs hepatitis C injection. At the same time, the patient is compliant with taking his medications. He is still having trouble sleeping at night, although he slept slightly better last night since we increased his trazodone. ASSESSMENT: The patient is still agitated and in irritable mood. TREATMENT PLAN: Continue monitoring his behavior and his condition. Also, continue adjusting psychotropic medications and work on behavioral modification. JOB# [id number]
--- NOTE | 2019-02-27 20:52 | Internal Medicine Prog Note ---
Internal Medicine Subjective - Subjective Service Date: 02/27/19 Patient seen and examined:: without staff (HE IS DOING BETTER) Patient is:: awake, verbal, ambulating, talking Per staff patient has:: no adverse event Internal Medicine Objective - Physical Exam Vitals and I&O: Vital Signs Temp 98 F 02/27/19 20:42 Pulse 66 02/27/19 20:42 Resp 19 02/27/19 20:42 BP 99/62 02/27/19 20:42 Pulse Ox 96 02/27/19 20:42 Intake & Output 02/27/19 02/27/19 02/28/19 06:59 18:59 06:59 Intake Total 120 1100 240 Balance 120 1100 240 Intake: Oral 120 1100 240 Other: # Voids 3 4 1 # Bowel Movements 1 Active Medications: Current Medications Acetaminophen (Tylenol) 650 mg PO Q4HR PRN PRN Reason: Mild Pain 1-3 Stop: 04/16/19 00:24 Acetaminophen (Tylenol) 650 mg PO Q4H PRN PRN Reason: TEMP ABOVE 100 Stop: 04/16/19 10:08 Carvedilol (Coreg) 3.125 mg PO BID [facility] Stop: 04/16/19 08:59 Last Admin: 02/27/19 17:47 Dose: Not Given Docusate Sodium (Colace) 250 mg PO BID [facility] Stop: 04/16/19 08:59 Last Admin: 02/27/19 17:55 Dose: 250 mg Famotidine (Pepcid) 20 mg PO DAILY [facility] Stop: 04/16/19 08:59 Last Admin: 02/27/19 09:10 Dose: 20 mg Fish Oil ([place] 3) 1,000 mg PO DAILY [facility] Stop: 04/16/19 08:59 Last Admin: 02/27/19 09:12 Dose: 1,000 mg Guaifenesin (Robitussin) 200 mg PO Q4HR PRN PRN Reason: Cough or Congestion Stop: 04/21/19 18:09 Last Admin: 02/27/19 09:31 Dose: 200 mg Ibuprofen (Motrin) 400 mg PO Q8HR PRN PRN Reason: moderate pain (4-6) Stop: 04/16/19 00:24 Last Admin: 02/27/19 09:31 Dose: 400 mg Levetiracetam (Keppra) 500 mg PO BID [facility] Stop: 04/16/19 08:59 Last Admin: 02/27/19 17:55 Dose: 500 mg Lisinopril (Zestril) 20 mg PO BID [facility] Stop: 04/16/19 08:59 Last Admin: 02/27/19 17:47 Dose: Not Given Lorazepam (Ativan) 0.5 mg PO Q4HR PRN; Protocol PRN Reason: Anxiety Stop: 04/23/19 14:58 Last Admin: 02/27/19 10:12 Dose: 0.5 mg Miscellaneous (Icosapent Ethyl [Vascepa]) 2 gm PO BID [facility] Stop: 04/16/19 08:59 Olanzapine (Zyprexa Zydis) 5 mg PO DAILY [facility]; Protocol Stop: 04/16/19 08:59 Last Admin: 02/27/19 09:14 Dose: 5 mg Olanzapine (Zyprexa) 20 mg PO HS [facility]; Protocol Stop: 04/28/19 20:59 Trazodone HCl (Desyrel) 100 mg PO HS [facility]; Protocol Stop: 04/23/19 20:59 Last Admin: 02/26/19 20:57 Dose: 100 mg General: alert HEENT: NC/AT, PERRLA, EOMI, anicteric sclerae, throat clear Neck: Supple, No JVD, No thyromegaly, +2 carotid pulse wo bruit, No LAD Cardiovascular: RRR, Normal S1, Normal S2, without murmur Abdomen: soft, non-tender, non-distended Extremities: clear Neurological: no change Internal Medicine Assmt/Plan - Assessment Assessment: 1.HTN. 2.SEIZURE DISORDER. 3.HYPERLIPIDEMIA. 4.PSYCHOSIS 5.BACK PAIN 6.CHRONIC SMOKING - Plan Plan: CONTINUE ON CURRENT MEDICATION AND DIET. Nutritional Asmnt/Malnutr-PDOC - Dietary Evaluation Malnutrition Findings (Please click <Entered> for more info): Nutritional Asmnt/Malnutrition Start: 02/20/19 14: 34 Text: Status: Complete Freq: Protocol: Document 02/20/19 14:34 AB (Rec: 02/20/19 14:37 AB [email or web address]) Nutritional Asmnt/Malnutrition Patient General Information Nutritional Screening Low Risk Diagnosis Psychosis Pertinent Medical Hx/Surgical Hx HTN, Seizure Disorder, GERD, Psychosis, DJD, Chronic smoker Subjective Information Pt is a 68-year-old male admitted on 02/14 d/t psychosis . Pt is eating an estimated 100% of meals since admit date Per Meal/Nutrition Activity Record. Dietary is currently providing an estimated 2300 kcals and 115 gm Pro to meet 100+% kcal and 100+% Pro needs . Anthropometrics HT: 57 WT: 180 LB (81.82 kg) ABW: 156 LB (70.91 kg) BMI: 28.19 (Overweight) GI/ Skin Integrity GI: WNL, Soft, Flat, Non- tender BM: 02/16 x1 I/O: 1740/ not noted Skin: WNL, Intact Nino: 22 Diet Order: Cardiac, chopped, TOAN Estimated Energy Needs: ( Geriatric, ABW) 6158-5922 kcals (25-30 kcals/ kg) 70-85g Pro (1.0-1.2 g/kg) 3880-0498 ml (25-30 ml/kg) Current Diet Order/ Nutrition Support Cardiac, chopped, TOAN Pertinent Medications Coreg, Colace, Pepcid, [place] 3 Pertinent Labs 02/14: Glucose 154, GFR 82, HDL 39 Nutritional Hx/Data Height 1.7 m Height (Calculated Centimeters) 170.2 Current Weight (lbs) 81.647 kg Weight (Calculated Kilograms) 81.6 Weight (Calculated Grams) 12333.6 [place] Body Weight 148 LB (67.27 kg) % [place] Body Weight 122 Body Mass Index (BMI) 28.1 Weight Status Overweight GI Symptoms GI Symptoms None Last BM 02/16 x1 Skin Integrity/Comment: Skin: WNL, Intact Nino: 22 Current %PO Good (75-100%) Estimated Nutritional Goals BEE in Kcals: Adj wt of IBW Calories/Kcals/Kg 25-30 Kcals Calculated 2683-1750 Protein: Adj wt of IBW Protein g/k.0-1.2 Protein Calculated 70-85 Fluid: ml 4217-0619 ml (25-30 ml/kg) Nutritional Problem No current Nutrition Prob Problem No nutrition diagnosis at this time. Etiology N/A Signs/Symptoms: N/A Malnutrition Related to Morbid Obesity Malnutrition related to morbid obesity No Intervention/Recommendation Comments Continue Cardiac, chopped, TOAN diet as tolerated. Expected Outcomes/Goals Expected Outcomes/Goals 1. PO intake to continue to meet> 75% of estimated nutritional needs. 2. Monitor PO intake, wt, nutrition related labs, and skin integrity. 3. F/U as low risk in 7-10 days, 02/27-03/02
[2019-02-28] MEDS: OLANZapine 5 mg Oral Disintegrating Tab PO SCH (08:22)
[2019-02-28] MEDS: Fish Oil 1,000 MG SGL PO SCH (08:22)
--- NOTE | 2019-02-28 09:58 | Discharge Summary ---
DATE OF DISCHARGE: 02/28/2019 AGE: 68. SEX: Male. PHYSICIAN: Dr. Cummings. FINAL DIAGNOSIS AND PRIMARY DIAGNOSIS: Chronic paranoid schizophrenia with acute exacerbation. SECONDARY DIAGNOSES: Hypertension. Seizure disorder. Gastroesophageal reflux disease. Neuropathy. Cerebral infarct. REASON FOR HOSPITALIZATION: The patient was admitted to the hospital from [facility] because of increased aggressive behavior and irritability and ____ and was unable to follow any directions. HOSPITAL COURSE: The patient continued to be in angry and in irritable mood. The patient also was easily agitated and easily irritable. The patient was started on Zyprexa and the dose adjusted to 5 mg in the morning and 20 mg at bedtime. Also, because of his difficulty sleeping up night, the patient was given trazodone in a dose of 100 mg at bedtime. The patient also is sleeping better. Also, gradually, the patient's affect was brighter. Also, less irritable and less agitated and the patient was discharged from the hospital. Physical exam of the patient came as mentioned under AXIS III of final diagnosis. Blood workup was also basically within normal and the patient has no major medical issues while in the hospital. AFTER DISCHARGE PLANS: The patient is discharged from the hospital and returned to [place] with plans to continue his treatment there. EXPECTED OUTCOME AFTER DISCHARGE: Fair if the patient continues with outpatient treatment and follow up with discharge plans. [facility]# [id number]
--- NOTE | 2019-03-01 14:19 | Internal Medicine Prog Note ---
Internal Medicine Subjective - Subjective Service Date: 02/28/19 Patient seen and examined:: without staff (HE FEELS WELL) Patient is:: awake, verbal, ambulating, talking Per staff patient has:: no adverse event Internal Medicine Objective - Physical Exam Vitals and I&O: Vital Signs Temp 97.6 F 02/28/19 06:17 Pulse 98 02/28/19 09:01 Resp 20 02/28/19 06:17 BP 125/78 02/28/19 09:01 Pulse Ox 98 02/28/19 06:17 Intake & Output 02/27/19 02/28/19 02/28/19 18:59 06:59 18:59 Intake Total 1100 240 Balance 1100 240 Intake: Oral 1100 240 Other: # Voids 4 1 # Bowel Movements 1 Active Medications: Current Medications Acetaminophen (Tylenol) 650 mg PO Q4HR PRN PRN Reason: Mild Pain 1-3 Stop: 04/16/19 00:24 Last Admin: 02/28/19 12:57 Dose: 650 mg Acetaminophen (Tylenol) 650 mg PO Q4H PRN PRN Reason: TEMP ABOVE 100 Stop: 04/16/19 10:08 Carvedilol (Coreg) 3.125 mg PO BID [facility] Stop: 04/16/19 08:59 Last Admin: 02/28/19 08:23 Dose: 3.125 mg Docusate Sodium (Colace) 250 mg PO BID [facility] Stop: 04/16/19 08:59 Last Admin: 02/28/19 08:24 Dose: Not Given Famotidine (Pepcid) 20 mg PO DAILY [facility] Stop: 04/16/19 08:59 Last Admin: 02/28/19 08:24 Dose: 20 mg Fish Oil ([place] 3) 1,000 mg PO DAILY [facility] Stop: 04/16/19 08:59 Last Admin: 02/28/19 08:22 Dose: 1,000 mg Guaifenesin (Robitussin) 200 mg PO Q4HR PRN PRN Reason: Cough or Congestion Stop: 04/21/19 18:09 Last Admin: 02/27/19 21:04 Dose: 200 mg Ibuprofen (Motrin) 400 mg PO Q8HR PRN PRN Reason: moderate pain (4-6) Stop: 04/16/19 00:24 Last Admin: 12/16/19 09:31 Dose: 400 mg Levetiracetam (Keppra) 500 mg PO BID [facility] Stop: 04/16/19 08:59 Last Admin: 02/28/19 08:24 Dose: 500 mg Lisinopril (Zestril) 20 mg PO BID [facility] Stop: 04/16/19 08:59 Last Admin: 02/28/19 09:01 Dose: 20 mg Lorazepam (Ativan) 0.5 mg PO Q4HR PRN; Protocol PRN Reason: Anxiety Stop: 04/23/19 14:58 Last Admin: 02/28/19 12:57 Dose: 0.5 mg Miscellaneous (Icosapent Ethyl [Vascepa]) 2 gm PO BID [facility] Stop: 04/16/19 08:59 Olanzapine (Zyprexa Zydis) 5 mg PO DAILY [facility]; Protocol Stop: 04/16/19 08:59 Last Admin: 02/28/19 08:22 Dose: 5 mg Olanzapine (Zyprexa) 20 mg PO HS [facility]; Protocol Stop: 04/28/19 20:59 Last Admin: 02/27/19 21:04 Dose: 20 mg Trazodone HCl (Desyrel) 100 mg PO HS [facility]; Protocol Stop: 04/23/19 20:59 Last Admin: 02/27/19 21:04 Dose: 100 mg General: alert HEENT: NC/AT, PERRLA, EOMI, anicteric sclerae, throat clear Neck: Supple, No JVD, No thyromegaly, +2 carotid pulse wo bruit, No LAD Cardiovascular: RRR, Normal S1, Normal S2, without murmur Abdomen: soft, non-tender, non-distended Extremities: clear Neurological: no change Internal Medicine Assmt/Plan - Assessment Assessment: 1.HTN. 2.SEIZURE DISORDER. 3.HYPERLIPIDEMIA. 4.PSYCHOSIS 5.BACK PAIN 6.CHRONIC SMOKING - Plan Plan: CONTINUE ON CURRENT MEDICATION AND DIET. Nutritional Asmnt/Malnutr-PDOC - Dietary Evaluation Malnutrition Findings (Please click <Entered> for more info): Nutritional Asmnt/Malnutrition Start: 02/20/19 14: 34 Text: Status: Complete Freq: Protocol: Document 02/20/19 14:34 AB (Rec: 02/20/19 14:37 [email or web address]) Nutritional Asmnt/Malnutrition Patient General Information Nutritional Screening Low Risk Diagnosis Psychosis Pertinent Medical Hx/Surgical Hx HTN, Seizure Disorder, GERD, Psychosis, DJD, Chronic smoker Subjective Information Pt is a 68-year-old male admitted on 02/14 d/t psychosis . Pt is eating an estimated 100% of meals since admit date Per Meal/Nutrition Activity Record. Dietary is currently providing an estimated 2300 kcals and 115 gm Pro to meet 100+% kcal and 100+% Pro needs . Anthropometrics HT: 57 WT: 180 LB (81.82 kg) ABW: 156 LB (70.91 kg) BMI: 28.19 (Overweight) GI/ Skin Integrity GI: WNL, Soft, Flat, Non- tender BM: 02/16 x1 I/O: 1740/ not noted Skin: WNL, Intact Nino: 22 Diet Order: Cardiac, chopped, TOAN Estimated Energy Needs: ( Geriatric, ABW) 2962-4463 kcals (25-30 kcals/ kg) 70-85g Pro (1.0-1.2 g/kg) 8176-7556 ml (25-30 ml/kg) Current Diet Order/ Nutrition Support Cardiac, chopped, TOAN Pertinent Medications Coreg, Colace, Pepcid, [place] 3 Pertinent Labs 02/14: Glucose 154, GFR 82, HDL 39 Nutritional Hx/Data Height 1.7 m Height (Calculated Centimeters) 170.2 Current Weight (lbs) 81.647 kg Weight (Calculated Kilograms) 81.6 Weight (Calculated Grams) 24885.6 [place] Body Weight 148 LB (67.27 kg) % [place] Body Weight 122 Body Mass Index (BMI) 28.1 Weight Status Overweight GI Symptoms GI Symptoms None Last BM 02/16 x1 Skin Integrity/Comment: Skin: WNL, Intact Nino: 22 Current %PO Good (75-100%) Estimated Nutritional Goals BEE in Kcals: Adj wt of IBW Calories/Kcals/Kg 25-30 Kcals Calculated 3837-3182 Protein: Adj wt of IBW Protein g/k.0-1.2 Protein Calculated 70-85 Fluid: ml 8869-1129 ml (25-30 ml/kg) Nutritional Problem No current Nutrition Prob Problem No nutrition diagnosis at this time. Etiology N/A Signs/Symptoms: N/A Malnutrition Related to Morbid Obesity Malnutrition related to morbid obesity No Intervention/Recommendation Comments Continue Cardiac, chopped, TOAN diet as tolerated. Expected Outcomes/Goals Expected Outcomes/Goals 1. PO intake to continue to meet> 75% of estimated nutritional needs. 2. Monitor PO intake, wt, nutrition related labs, and skin integrity. 3. F/U as low risk in 7-10 days, 02/27-03/02
== END 2019-02-28 16:20 | DRG 885 ==
LOC: GERO 21:00
PROVIDERS: ADMIT Psychiatry & Neurology Psychiatry; ATTEND Psychiatry & Neurology Psychiatry
DX: F20.0 Paranoid schizophrenia (principal); F29 Unspecified psychosis not due to a substance or known physiological condition; K21.9 Gastro-esophageal reflux disease without esophagitis; G40.909 Epilepsy, unspecified, not intractable, without status epilepticus; G62.9 Polyneuropathy, unspecified; M19.90 Unspecified osteoarthritis, unspecified site; E78.5 Hyperlipidemia, unspecified; F17.210 Nicotine dependence, cigarettes, uncomplicated; I10 Essential (primary) hypertension; G89.29 Other chronic pain; Z86.73 Personal history of transient ischemic attack (TIA), and cerebral infarction without residual deficits
CPT/HCPCS: 83036-90; 90899; G0410; J7051; Z7610